=== PATIENT | male | born 1980 | race Hispanic/Latino ===

== ENCOUNTER 2016-12-09 17:23 | Inpatient (IN) | payer OTHER ==
[~2016-12-09] VITALS: Ht 172.7 cm; Wt 104.3 kg
--- NOTE | 2016-12-09 17:24 | NUR ---
PT IN PD CUSTODY, BROUGHT TO ED FOR MED REFILLS. PT STATES HE WAS SEEN AT [facility] TODAY FOR SI AND THAT HE WAS RELEASED. PER PD, PT HAD AN ACTIVE WARRANT AND WAS ARRESTED PRIOR TO BEING ABLE TO APPLIANCE REPAIR TECHNICIAN HIS PRESCRIPTIONS. PER CA, PT MAY NOT BE MED COMPLIANT WITH HIS ABILIFY 10MG AND TRAZADONE 200MG FOR HIS BIPOLAR/SCHIZOPHRENIA. PT DOES REPORT +SI TO THIS RN AND REPORTS HEARING VOICES (NOT [facility]) TO MARITZA IQBAL. PT STATES THAT AT [facility] HE HIT HIS HEAD AGAINST THE WALL AND TIED A SHEET AROUND HIS NECK. PT IS IN HANDCUFFS. PT EVALUATED IN HALLWAY C AND MOVED VIA WHEELCHAIR TO ROOM 14.
--- NOTE | 2016-12-09 17:30 | NUR ---
MARITZA IQBAL AT BEDSIDE
--- NOTE | 2016-12-09 17:34 | ED PSYCHIATRIC COMPLAINT ---
See Addendum History of Present Illness General Chief Complaint: Psychiatric Related Complaint Stated Complaint: BIBA FOR MED REFILL Source: patient, EMS, police Exam Limitations: no limitations Vital Signs & Intake/Output Vital Signs & Intake/Output Vital Signs Date Time Temp Pulse Resp B/P B/P Pulse O2 O2 Flow FiO2 Mean Ox Delivery Rate 12/10 1620 Room Air 12/10 0950 100 120/90 12/10 0620 97.3 98 19 129/85 98 Room Air 12/09 2140 98.0 67 16 120/70 94 Room Air ED Intake and Output 12/10 0000 12/09 1200 Intake Total Output Total Balance Patient 230 lb Weight Allergies Uncoded Allergies: Allergy Other FISH Med Allergies NKDA Triage Note: PT BIBA IN CUSTODY FOR MED REFILL OF TRAZADONE AND ABILIFY. PT WAS SEEN AT [facility] [place] BUT GOT ARRESTED BEFORE HE COULD GET PRESCRIPTIONS FILLED. PT DENIES SI/HI. Triage Nurses Notes Reviewed? yes Onset: Abrupt Duration: day(s): HPI: 36-year-old male comes into emergency room for further evaluation of suicidal ideation as well as hearing voices. He is currently incarcerated with the police. Supposedly he was discharged from [facility] earlier today. Patient reports that he has a history of schizophrenia. He denies any alcohol or drug use. Denies any other associated symptoms. Denies any pain currently. Patient has been off of his trazodone and Abilify. (MONTEZ JEWELL) Past History Medical History Any Pertinent Medical History? see below for history Psychiatric: schizophrenia Surgical History Surgical History: non-contributory Psychosocial History What is your primary language Finnish Family History Hx Contributory? No (MONTEZ JEWELL) Review of Systems Review of Systems Constitutional: Reports: no symptoms. EENTM: Reports: no symptoms. Respiratory: Reports: no symptoms. Cardiovascular: Reports: no symptoms. GI: Reports: no symptoms. Genitourinary: Reports: no symptoms. Musculoskeletal: Reports: no symptoms. Skin: Reports: no symptoms. Neurological/Psychological: Reports: see HPI. Hematologic/Endocrine: Reports: no symptoms. Immunologic/Allergic: Reports: no symptoms. All Other Systems: Reviewed and Negative (MONTEZ JEWELL) Physical Exam Physical Exam General Appearance: well developed/nourished, mild distress Head: atraumatic Eyes: Bilateral: normal appearance. Ears, Nose, Throat: normal ENT inspection, hearing grossly normal Neck: normal inspection Respiratory: no respiratory distress Gastrointestinal: soft Extremities: normal range of motion Neurological/Psychiatric: awake, agitated Appearance/Memory/Insight: disheveled Behavoir/Eye Contact/Speech: avoids eye contact Thoughts/Hallucinations: no apparent hallucination Skin: intact, normal color, warm/dry SAD PERSONS Done? unobtained due to conditi (MONTEZ JEWELL) Progress Differential Diagnosis: dementia, drug intoxication, drug overdose, drug withdrawal, electrolyte abnormality, encephalitis, hypoglycemia, hypothyroidism, IC hem/mass/tumor, meningitis, bipolar, schizophrenia, Plan of Care: Orders Procedure Date/time Status Regular Diet 12/10 B Active Continuous Observation Monitor 12/10 0700 Active Current Medications Sig/Marianela Start time Last Medication Dose Stop Time Status Admin Quetiapine Fumarate 300 MG QPM 12/11 2200 UNVr (Seroquel) Quetiapine Fumarate 300 MG QPM 12/10 2200 CAN (Seroquel) Divalproex Sodium 750 MG ONCE ONE 12/10 1000 CAN (Depakote ER) 12/10 1001 Divalproex Sodium 750 MG DAILY 12/10 1000 UNVr 12/10 (Depakote ER) 1041 Hand-Off Endorsed To: JADA MARTEL,DACIA Donis Endorsed Time: 57 Pending: other (crisis) (MONTEZ JEWELL) Comments: 12/10/2016 9:56:37 AM patient signed out to me by Dr. Cardoso at shift price changer. The patient has been evaluated by the caseworker intake and medications been ordered at their request. Plan reevaluation in the morning (given the patient's past history it is highly unlikely a bed would be available prior to this patient's Monday court appearance). 12/10/2016 7:38:35 PM patient signed out to Dr. Truong at shift price changer. (SOILA MARTEL,VALERY Morrow) Departure Departure Disposition: STILL A PATIENT Condition: Stable Clinical Impression Primary Impression: Suicidal ideation Secondary Impressions: Auditory hallucinations Referrals: UNKNOWN Departure Forms: Customer Survey General Discharge Information (MONTEZ JEWELL) PA/FOREST RANGER TECHNICIAN Co-Sign Statement Statement: ED Attending supervision documentation- [] I saw and evaluated the patient. I have also reviewed all the pertinent lab results and diagnostic results. I agree with the findings and the plan of care as documented in the PA's/FOREST RANGER TECHNICIAN's documentation. [x] I have reviewed the ED Record and agree with the PA's/FOREST RANGER TECHNICIAN's documentation. [] Additions or exceptions (if any) to the PAs/FOREST RANGER TECHNICIAN's note and plan are summarized below: [] (JADA MARTEL,DACIA Donis) PA/FOREST RANGER TECHNICIAN Co-Sign Statement Statement: ED Attending supervision documentation- [] I saw and evaluated the patient. I have also reviewed all the pertinent lab results and diagnostic results. I agree with the findings and the plan of care as documented in the PA's/FOREST RANGER TECHNICIAN's documentation. [] I have reviewed the ED Record and agree with the PA's/FOREST RANGER TECHNICIAN's documentation. [] Additions or exceptions (if any) to the PAs/FOREST RANGER TECHNICIAN's note and plan are summarized below: [] (VALERY TRUONG DO) ED Attending supervision documentation- [] I saw and evaluated the patient. I have also reviewed all the pertinent lab results and diagnostic results. I agree with the findings and the plan of care as documented in the PA's/FOREST RANGER TECHNICIAN's documentation. [x] I have reviewed the ED Record and agree with the PA's/FOREST RANGER TECHNICIAN's documentation. [] Additions or exceptions (if any) to the PAs/FOREST RANGER TECHNICIAN's note and plan are summarized below: [] (JADA MARTEL,DACIA Donis)
--- NOTE | 2016-12-09 17:35 | NUR ---
SECURITY AT BEDSIDE FOR WANDING
--- NOTE | 2016-12-09 18:00 | NUR ---
PT RECEIVED AND ATE DINNER TRAY
[2016-12-09 18:15] LABS: ABSOLUTE BASOPHIL COUNT 0 /CUMM (0.0-0.2); ABSOLUTE EOSINOPHIL COUNT 0.2 /CUMM (0.0-0.7); ABSOLUTE GRANULOCYTE CT 3.8 /CUMM (1.4-6.5); ABSOLUTE LYMPH COUNT 2.2 /CUMM (1.2-3.4); ABSOLUTE MONOCYTE COUNT 0.6 /CUMM (0.10-0.60); BASOPHIL % 0.3 % (0.0-2.0); GRANULOCYTE % 55.1 % (42.2-75.2); HEMATOCRIT 43.4 % (42-52); MEAN CORPUSCULAR HGB 26.5 PG (27.0-31.0); MEAN CORPUSCULAR HGB CONC 33.3 G/DL (33.0-37.0); MEAN CORPUSCULAR VOLUME 79.6 FL (80.0-94.0); MEAN PLATELET VOLUME 9.3 FL (7.4-10.4); PLATELET COUNT 166 /CUMM (130-400); RBC DISTRIBUTION WIDTH 17.8 % (11.5-14.5); RED BLOOD CELL CT 5.45 /CUMM (4.70-6.10); WHITE BLOOD CELL COUNT 6.8 /CUMM (4.8-10.8)
--- NOTE | 2016-12-09 18:15 | NUR ---
PT PROVIDED URINE SPECIMEN AND TRIO WAS SENT TO LAB
--- NOTE | 2016-12-09 19:14 | NUR ---
CRISIS ATTEMPTED TO EVAL PT BUT HE WAS ASLEEP. PD OFFICER AND SITTER AT DOOR.
--- NOTE | 2016-12-09 21:03 | NUR ---
Crisis has attempted to evaluate patient at 1700 and 1900. Patient does not seem arousable at both times. It is unclear whether patient is somulent due to cocaine withdrawal or if he is avoiding the evaluation because of the circumstances of police involvement (will be taken into police custody at discharge bc of an active warrant - officer will be present until final dispo)
--- NOTE | 2016-12-09 21:17 | ED PSY CRISIS COLLATERAL NOTE ---
Collateral Note Collateral Note Family/Inform/Alexey Contacts: Collateral obtained MondayDecember 09, 2016 1.) This documentation writer attempted to contact patient's emergency contact Eleazar Ford A voicemail was left requesting call back to crisis 2.) This documentation writer contacted [facility]'s behavioral health for collateral information Behavioral health nurse Tova reports patient was seen at their emergency department earlier today. Patient was evaluated by psychiatry and cleared for discharge. Patient per nurse report has been seen 3 times at [facility] emergency department in the past week. At time of discharge today, client escalated by banging his head - patient was escorted out of the hospital by police. Nurse is not aware of any recent suicide attempt while at the hospital as reported in [facility]'s admitting notes. Nurse reports patient has been seen several times at [facility] emergency department and has had an inpatient stay at [facility]. Nurse reports patient has criminal history of sexual assault and has a warrant for violation of probation / failure to register as an offender. Nurse indicates patient has a diagnosis for bipolar disorder but is noncompliant with his psychotropic medications. Nurse reports patient was not given a discharge prescription today from the hospital and she is not aware of any current medication management providers involved in his care.
--- NOTE | 2016-12-09 21:40 | NUR ---
PT AWOKEN FOR VITALS. PT CALM AND COOPERATIVE. VSS. SITTER AT DOOR.
--- NOTE | 2016-12-09 23:42 | NUR ---
ASSUMED CARE OF PT PER DAREN MCBRIDE. PT SLEEPING ON RIGHT SIDE WITH BILATERAL CHEST RISE AND FALL, SNORING NOTED. SUPERVISOR EDGING AND SITTER AT BEDSIDE FOR SAFETY.
--- NOTE | 2016-12-10 02:48 | NUR ---
PT SLEEPING WITH RR, WILL CONTINE TO MONITOR, PT HAS SITTER PD OFFICER IN PLACE FOR SAFETY.
--- NOTE | 2016-12-10 04:40 | NUR ---
SLEEPING, SITTER AND PD IN ATTENDANCE.
--- NOTE | 2016-12-10 06:25 | NUR ---
PT AWAKE, VSS. PD REMAINS AT BEDSIDE AND PT REMAINS IN HANDCUFFS ADJUSTED BY PD.
--- NOTE | 2016-12-10 08:00 | NUR ---
EATING BREAKFAST, SITTER AND PD IN ATTENDANCE.
--- NOTE | 2016-12-10 09:12 | NUR ---
PMO PROJECT MANAGER IN TO EVALUATE.
--- NOTE | 2016-12-10 10:16 | ED PSY CRISIS COLLATERAL NOTE ---
Collateral Note Collateral Note Family/Inform/Alexey Contacts: This clinician spoke with lEeazar Ford [phone] friend who reported the patient has a long history of mental health treatment. She reported the patient has a diagnoses of Bipolar Depressed mood and has a history of suicide ideation stating he wants to kill himself.
--- NOTE | 2016-12-10 10:57 | ED PSYCH CRISIS CONSULTATION ---
See Addendum Crisis Consult Basic Assessment Date of Consult: 12/10/16 Responsible Person/Accompanied By: Self Insurance Authorization: Insurance #1: Insurance name: ENRIQUETA LARSON Phone number: Policy number: [id number] Group number: Authorization number: ED Provider: Patient's ED Provider: MONTEZ JEWELL Primary Care Physician: Patient's PCP: PATIENT HAS NO PRIMARY CARE DR PCP's Phone Number: Current Psychiatrist: Dr. Manoj Wilde Chief Complaint: Psychiatric Related Complaint Patient's Quote: " voices telling me to kill myself" Present Illness: Patient is 36 year old single male who presents to the emergency room with auditory hallucination telling him to kill himself. He reports a history of suicide ideations and recently trying to hang himself with a sheet while attempting to receive treatment at [facility]. He represents depressed, sad, and angry. The patient reports a long history of mental health treatment [facility]. He is currently in police custody regarding current legal charge, the patient is a register sex offender and states he did not provide his current address and has a court date on Monday December 12, 2016. He reports a legal history of sales of narcotics. He reports a history of substance abuse Alcohol, Cannabis and Cocaine and last use of Cocaine two days ago several bags. He provided a positive toxicology screen for Cocaine. Patient's Address: [address] [place] [address] Other Phone Number: Who Do You Live With? Other (see notes) (Homeless) Family/Informants Interviewed: Eleazar Ford [phone] Allergies - Uncoded Allergies: Allergy Other FISH Med Allergies NKDA Laboratory Results: Laboratory Tests 12/09/16 1819: Urine Opiates Screen < 100.00, Methadone Screen < 40, Barbiturate Screen < 60, Ur Phencyclidine Scrn < 6.00, Amphetamines Screen < 100, U Benzodiazepines Scrn < 85, Urine Cocaine Screen > 1000 H, Urine Cannabis Screen 11.30 12/09/16 1802: Anion Gap 9, Estimated GFR > 60, BUN/Creatinine Ratio 22.9, Glucose 96, Calcium 9.4, Total Bilirubin 0.5, AST 38, ALT 45, Alkaline Phosphatase 47, Total Protein 6.3, Albumin 4.0, Globulin 2.3, Albumin/Globulin Ratio 1.7, CBC w Diff NO MAN DIFF REQ, RBC 5.45, MCV 79.6 L, MCH 26.5 L, RDW 17.8 H, MPV 9.3, Gran % 55.1, Lymphocytes % 32.7, Monocytes % 8.9, Eosinophils % 3.0, Basophils % 0.3, Absolute Granulocytes 3.8, Absolute Lymphocytes 2.2, Absolute Monocytes 0.6, Absolute Eosinophils 0.2, Absolute Basophils 0, PUBS MCHC 33.3, Serum Alcohol < 10.0 Past History Past Medical History Respiratory: asthma Psychiatric: bipolar disease, depression, schizophrenia, substance abuse Past Surgical History Surgical History: non-contributory Psychosocial History Strengths/Capabilities: motivated for treatment Psychiatric Treatment History Psych Treatment Psychiatric Treatment Yes Inpatient Treatment Yes Outpatient Treatment Yes Location of Treatment [place] [place] Reason for Treatment Bipolar Disorder Dates of Treatment 2009 Response to Treatment poor Diagnosis by History: Bipolar Disorder Substance Use/Abuse History Drug Use/Abuse Substances Used/Abused Yes Substance Used/Abused Cocaine First Use 17 year old Last Used 2 days ago How much used/taken 5 bags How often 3times weekly For how long 17 years old Route of use smoking Substance Abuse Treatment Substance Abuse Treatment Past Substance Abuse [place] No Inpatient Treatment No Outpatient Treatment No Current Mental Status Mental Status Orientation: Person, Place, Situation Affect: Angry, Depressed, Sad Speech: Soft Neuro-vegetative: Appetite Decreased Appearance Appearance- Dress/Hygiene: Dressed in hospital clothing Behaviors Thought Process: WNL Thought Content: Auditory Hallucinations Memory: WNL Insight: Poor SI/HI Risk Assessment Past Suicidal Ideation/Attempts Yes Current Suicidal Ideation/Att Yes Past Homicidal Ideation/Att: No Current Homicidal Ideation/Attempts No Degree of Intent: Thoughts/No Intent Danger To: Self Gravely Disabled: Lack of Insight, Poor Impulse Control, Poor Judgment Risk Factors: high anxiety/distress, history of suicide atmpts, SA/MH hospitalized, substance abuse, isolate/no social support, poor impulse control, limited support Lethality Ratin PTSD Checklist PTSD Score: PTSD Score: Response Value Disturbing memories,thoughts,images of stressful experience? Not at all 1 Disturbing dreams of stressful experience from past? Not at all 1 Suddenly acting/feeling as if reliving stressful experience? Not at all 1 Total 3 PTSD Done? patient declined ED Management Sitter: Yes Restraints: No DSM5/PS Stressors/Medical Prob Diagnosis' (DSM 5, Stressors, Medical): Bipolar Disoder Depressed with psychotic Features F31.5, Asthma Current GAF: 28 Comments: Pt presents to emergency room with auditory hallucination and suicidal ideation voices telling him to kill himself with no plan. Pt presents with history of Bipolar Disorder Depressed with Psychotic features. Pt is currently in the custody of the police with court date on Monday December 12, 2016. He reports not taking his medication Depakote and Seroquel. This clinician consulted with Dr. Manoj Wilde for the patient to be treated iwth Depakote and Seroquel and re-evaluated on 12/11/2016. Departure Disposition Psych Medical Clearance Date: 12/10/16 Medically Cleared at: 0900 Time Started: 0900 Time Ended: 1000 Psychiatrist Consulted: Dr. Manoj Wilde Date Disposition Established: 12/10/16 Time Disposition Established: 1000 Plan for Disposition - Modality: Re- Evaluation on 12/11/2016 Rationale for Disposition: Pt presents to emergency room with auditory hallucination and suicidal ideation voices telling him to kill himself with no plan. Pt presents with history of Bipolar Disorder Depressed with Psychotic features. Pt is currently in the custody of the police with court date on Monday December 12, 2016. He reports not taking his medication Depakote and Seroquel. This clinician consulted with Dr. Manoj Wilde for the patient to be treated iwth Depakote and Seroquel and re-evaluated on 12/11/2016. Referrals PATIENT HAS NO PRIMARY CARE DR (PCP/Family)
--- NOTE | 2016-12-10 11:34 | NUR ---
ASSUMED CARE OF THIS PT FROM DAREN PONCE. PT ASLEEP AT THIS TIME. PT HAS ONE FOOT CUFFED TO THE BED AND PD OFFICER AT DOOR. RESPIRATIONS EQUALA ND UNLABORED AT 16/MIN. SITTER AT DOOR ALSO.
--- NOTE | 2016-12-10 12:58 | NUR ---
PT ASLEEP AT THIS TIME. SITTER AND PD OFFICER AT DOOR.
--- NOTE | 2016-12-10 14:29 | NUR ---
PT ASLEEP ON BED IN ROOM 14. PT'S RESPIRATIONS EQUAL AND UNLABORED. PD OFFICER AND SITTER AT DOOR.
--- NOTE | 2016-12-10 16:20 | NUR ---
YAIR REPORTED THAT PT IS REQUESTING AN ADDITIONAL DINNER TRAY. THIS RN TOLD YAIR IT WAS OK FOR HER TO CALL AND REQUEST ANOTHER MEAL. YAIR AND PD OFFICER AT DOOR.
--- NOTE | 2016-12-10 17:15 | NUR ---
PT ATE SECOND DINNER TRAY AND IS LYING ON BED IN ROOM 14 WITH [place] PD OFFICER AND SITTER AT DOOR. PT HAS BEEN CALM AND COOPERATIVE. RESPIRATIONS EQUAL AND UNLABORED.
--- NOTE | 2016-12-10 18:43 | NUR ---
Crisis went to meet with pt for evening shift evaluation. Pt was sleeping facing wall. Asked sitter to inform crisis if he wakes up or goes to the bathroom
--- NOTE | 2016-12-10 20:24 | NUR ---
Crisis went to check on patient to see if he can be risen for re-evaluation. Patient is sound asleep at this time.
--- NOTE | 2016-12-10 21:00 | NUR ---
PT UNSHACKELED FROM THE BED TO USE THE RESTROOM TO HAVE A BOWEL MOVEMENT. PT CALM AND COOPERATIVE AND WENT STRAIGHT BACK TO ROOM 14 WHEN DONE IN RESTROOM. PT ASKING FOR HIS [facility] MED. SITTER AND [place] PD OFFICER AT DOOR.
--- NOTE | 2016-12-10 21:44 | NUR ---
PT MEDICATED WITH SEROQUEL 300MG PO. PT REPORTS BACK PAIN AND IS REQUESTING MOTRIN. WILL MAKE MD AWARE. SITTER AND PD OFFICER AT DOOR.
--- NOTE | 2016-12-10 22:11 | NUR ---
PT MEDICATED WITH MOTRIN 600MG FOR BACKACHE, PIS 12/05. SITTER AND PD OFFICER AT DOOR
--- NOTE | 2016-12-11 00:06 | NUR ---
PT REMAINS ASLEEP AT THIS TIME W/RR NOTED. SITTER AND FROG FARMER REMAINS AT BEDSIDE FOR SAFETY. WILL CTM.
--- NOTE | 2016-12-11 02:24 | NUR ---
PT REMAINS ASLEEP AT THIS TIME W/RR NOTED. NAD. EQUAL AND BILATERAL CHEST RISE AND FALL. SITTER AND HOURLY ASSOCIATE AT BEDSIDE
--- NOTE | 2016-12-11 04:15 | NUR ---
PT REMAINS ASLEEP AT THIS TIME, RR NOTED. NAD. BILATERAL AND EQUAL CHEST RISE AND FALL. PT REMAINS WITH FOOT SHACKLED TO BED FRAME. CIRCULATION AND ROM WNL. SITTER AND POLICE REMAIN AT BEDSIDE FOR SAFETY. WILL CTM.
--- NOTE | 2016-12-11 06:51 | NUR ---
PATIENT ASLEEP AT PRESENT. EVEN, NONLABORED RESP RATE NOTED. LIGHTS REMAIN DIMMED AT PRESENT. WILL CONTINUE TO MONITOR. SITTER REMAINS IN PLACE FOR CONSTANT OBSERVATION AND PATIENT SAFETY. POLICE REMAINS IN PLACE.
--- NOTE | 2016-12-11 08:40 | NUR ---
PATIETN RESTING COMFORTABLY - NO COMPLAINTS OFFERED. POLICE REMAIN IN PRESENCE. WILL CONTINUE TO MONITOR. SITTERS REMAIN IN PLACE FOR CONSTANT OBSERVATION AND PATIENT SAFETY. WILL CONTINUE TO MONITOR.
--- NOTE | 2016-12-11 09:02 | NUR ---
PATIENT SLEEPING SOUNDLY AT PRESENT. EVEN, NONLABORED RESP RATE NOTED. WILL CONTINUE TO MONITOR. SITTER REMAINS IN PLACE FOR CONSTANT OBSERVATION AND PATIENT SAFETY.
--- NOTE | 2016-12-11 09:49 | ED PSYCHIATRIST/APRN CONSULT ---
Psychiatrist/MANAGER [employer] CENTER ED Consult Assessment and Plan: Pt seen as f/u. Pt difficult to arouse and very irritable on arousal. Pt notes that "still thining about hurting" himself. Feels that in the past the VPA and seroquel were helpful though seroquel did cause him to be sedated so he took at night. Pt denies AVHs today. MSE Appears older than stated age, somewhat cooperative, staring eye contact, nl speech r/r/p/v, mood "not good," affect very irritable, hostile, congruent, inappr, non-labile, linear and goal directed thought process, denies AVHs, + passive SI, no active SI, I/J limited A/P: Pt with Bipolar disorder with acute worsening of depression and psychotic sx in the setting of legal charges and recent arrest. Pt is in police custody with court date tomorrow morning. Attempting to stablize him with restart of meds that were previously helpful give acute decomenstation hopeful for acute reconstitution with cessation of SI. - Continue depakote ER 750mg night - Continue seroquel 300mg qhs
--- NOTE | 2016-12-11 09:54 | NUR ---
pharmacy called for depakote dosage ordered for 1000am
--- NOTE | 2016-12-11 10:16 | NUR ---
500mg depakote admin.
--- NOTE | 2016-12-11 11:20 | NUR ---
ASSUMED CARE OF THIS PT FROM DAREN MEDLEY. PT REMAINS IN PD CUSTODY AND IS SHACKELED TO BED. PT REPORTED TO SITTER THAT HE WAS NOT HAPPY WITH HIS LUNCH AND REQUESTED ANOTHER TRAY. PT WAS EDUCATED THAT ONE LUNCH TRAY IS ORDERED AND THAT IS WHAT IS AVAILABLE TO HIM. [place] PD OFFICER AT DOOR.
--- NOTE | 2016-12-11 12:28 | NUR ---
PT MEDICATED WITH ATIVAN 2MG PO FOR AGITATION. PT STATES THAT HE IS STILL HEARING VOICES TELLING HIM TO KILL HIMSELF. PT STATES THAT HE WISHED HE WAS , SO THAT HE COULD BE WITH HIS BROTHER WHO OVERDOSED AND . SITTER AND PD OFFICER AT DOOR.
--- NOTE | 2016-12-11 13:45 | NUR ---
PT ASLEEP ON BED IN ROOM AEB SNORING. SITTER AT DOOR.
--- NOTE | 2016-12-11 14:04 | NUR ---
PT'S RESPIRATIONS EQUAL AND UNLABORED AT 16/MIN.
--- NOTE | 2016-12-11 15:49 | NUR ---
PT ASLEEP IN ROOM 14. RESPIRATIONS EQUAL AND UNLABORED. SITTER AND PD OFFICER AT DOOR.
--- NOTE | 2016-12-11 15:51 | NUR ---
Pt. continues to reports having AH's to harm himself. Pt. will be h/o again in the ED. Pt. is in policer custoday and has court tomorrow.
--- NOTE | 2016-12-11 17:11 | NUR ---
PT ASLEEP AT THIS TIME, RESPIRATIONS EQUAL AND UNLABORED. SITTER AND PD OFFICER AT DOOR.
--- NOTE | 2016-12-11 18:45 | NUR ---
PT STARTING TO GET AGITATED AND HITTING HEAD AGAINST WALL. PT COMPLAINING ABOUT NOT BEING TREATED WELL AND ONLY GETTING GRILLED CHEESE FOR DINNER. PD OFFICER SPOKE WITH PT. PT ASKING TO SEE PSYCHIATRIST. THIS RN MADE DR CM AWARE THAT PT IS ASKING TO SEE MD AND IS ALSO SAYING HE FEELS LIKE HE WANTS TO HARM HIMSELF. CRISIS MADE AWARE AND THEY WILL CALL DR Montesinos FOR MED RECOMMENDATIONS. YAIR AND PD OFFICER AT DOOR.
--- NOTE | 2016-12-11 19:51 | NUR ---
PT MEDICATED WITH ATIVAN 2MG, HALDOL 10MG AND BENADRYL 50MG FOR AGITATION. SECURITY AND [place] PD OFFICERS IN ROOM WITH THIS RN FOR SAFETY.
--- NOTE | 2016-12-11 21:08 | NUR ---
PT ASLEEP AT THIS TIME AEB SNORING. PT'S RESPIRATIONS 16/MINUTE, EQUALA ND UNLABORED. SITTER AND PD AT DOOR.
--- NOTE | 2016-12-11 22:30 | NUR ---
THIS RN ATTEMPTED TO AWAKEN PT FOR QHS SEROQUEL BUT PT WAS VERY DROWSY AND DID NOT FULLLY AWAKEN. HOLDING SEROQUEL DOSE AT THIS TIME DUE TO SEDATION.
--- NOTE | 2016-12-11 23:34 | NUR ---
ASSUMED CARE OF PT FROM DAREN MCBRIDE. PT SLEEPING WITH REGULAR RR NOTED. SITTER AND PD REMAINS PRESENT
--- NOTE | 2016-12-12 02:00 | NUR ---
CURRENTLY SLEEPING WITH REGULAR RR NOTED. PD AND SITTER REMAIN IN ATTENDANCE.
--- NOTE | 2016-12-12 04:12 | NUR ---
SLEEPING AT PRESENT WITH REGULAR RR NOTED PD AND SITTER AT BEDSIDE
--- NOTE | 2016-12-12 08:00 | NUR ---
RESTING ON BED. SITTER IN ATTENDANCE. PT REMAINS HANDCUFFED TO BED. PD IN ATTENDANCE. AWAITING POC/DISPO. Informed waiting has been performed.
--- NOTE | 2016-12-12 10:39 | NUR ---
MEDICATED ORDERED (SEE MAR)
--- NOTE | 2016-12-12 12:11 | IP CRISIS DIAG ASSESS PSYCH ---
Diagnostic Assessment Basic Assessment Insurance Authorization: Insurance #1: Insurance name: ENRIQUETA LARSON Phone number: Policy number: [id number] Group number: Authorization number: [id number] from 12/12/16 Primary Care Physician: Patient's PCP: PATIENT HAS NO PRIMARY CARE DR PCP's Phone Number: Patient's Quote: " voices telling me to kill myself" Present Illness: 12/12/16 @ 0815: 36 M held over for psychotic symptoms. He remains in [place] police custody, and is due for a court hearing this morning. If he makes his $15 ,000 [place], he may be released to home. The patient denies he has a naval gunfire liaison officer, and he was arrested because he did not notify the State of his residence. The patient is sleeping, arousable, moderately cooperative. Oriented to person, day, reason for visit, and knows he is in a hospital. There is a significant delay in his responses, as if he is referring to an internal source. He reports that the quetiapine has slowed the multiple male voices he hears, but they are currently telling him to hurt himself by hanging. He reports that no medication has helped him very much, and he listens to loud music to drown the voices out. He currently endorses suicidal intent by hanging himself and beleives he will do this if released. He has a history of suicide attempts: hanging at home interrupted by being found ; cutting wrists, does not answer question about outcome. He does not feel he is detoxing from anything, but was positive for cocaine upon admission on 12/09/16 @ 1724. He feels safe from himself here in the hospital. The patient reports he normally lives with his aunt Kayleen. The patient is currently having psychotic symptoms and has a plan and intent to kill himself. After discussion with Dr. Kelley, and discussion between [facility], Macie Pablo, director of outpatient psychiatry and Garrett Vasquez, hospital certified credit counselor, the patient will go to inpatient psychiatry today without police escort. SW on [facility] will notify [facility] before [facility] patient is discharged. Patient's Address: [address] [place] [address] Other Phone Number: Who Do You Live With? Other (see notes) (Homeless,) Feel Safe Where You Live? Yes If No, Please Elaborate: The patient reports on 12/12/16 that he lives with his aunt Kayleen, with no one else in the household. He denies he has any children needing care while he is in the hospital. Marital Status: single Do You Have Children? No Primary Language? Armenian Language(s) Spoken At Home: Armenian, Sinhala Family/Informants Interviewed: Eleazar Ford [phone] Allergies - Coded Allergies: No Known Allergies (12/11/16) Consequences of Psych Med Use: The patient dislikes Abilify, saying he does not like the way it makes him feel, but will not elaborate. Lab Results: Laboratory Tests 12/09 12/09 1819 1802 Chemistry Sodium (137 - 145 mmol/L) 140 Potassium (3.5 - 5.1 mmol/L) 4.0 Chloride (98 - 107 mmol/L) 105 Carbon Dioxide (22 - 30 mmol/L) 26 Anion Gap (5 - 16) 9 BUN (9 - 20 mg/dL) 16 Creatinine (0.7 - 1.2 mg/dL) 0.7 Estimated GFR (>60 ml/min) > 60 BUN/Creatinine Ratio (7 - 25 %) 22.9 Glucose (65 - 99 mg/dL) 96 Calcium (8.4 - 10.2 mg/dL) 9.4 Total Bilirubin (0.2 - 1.3 mg/dL) 0.5 AST (17 - 59 U/L) 38 ALT (21 - 72 U/L) 45 Alkaline Phosphatase (< 127 U/L) 47 Total Protein (6.3 - 8.2 g/dL) 6.3 Albumin (3.5 - 5.0 g/dL) 4.0 Globulin (1.9 - 4.2 gm/dL) 2.3 Albumin/Globulin Ratio (1.1 - 2.2 %) 1.7 Hematology CBC w Diff NO MAN DIFF REQ WBC (4.8 - 10.8 /CUMM) 6.8 RBC (4.70 - 6.10 /CUMM) 5.45 Hgb (14.0 - 18.0 G/DL) 14.4 Hct (42 - 52 %) 43.4 MCV (80.0 - 94.0 FL) 79.6 L MCH (27.0 - 31.0 PG) 26.5 L RDW (11.5 - 14.5 %) 17.8 H Plt Count (130 - 400 /CUMM) 166 MPV (7.4 - 10.4 FL) 9.3 Gran % (42.2 - 75.2 %) 55.1 Lymphocytes % (20.5 - 51.1 %) 32.7 Monocytes % (1.7 - 9.3 %) 8.9 Eosinophils % (0 - 5 %) 3.0 Basophils % (0.0 - 2.0 %) 0.3 Absolute Granulocytes (1.4 - 6.5 /CUMM) 3.8 Absolute Lymphocytes (1.2 - 3.4 /CUMM) 2.2 Absolute Monocytes (0.10 - 0.60 /CUMM) 0.6 Absolute Eosinophils (0.0 - 0.7 /CUMM) 0.2 Absolute Basophils (0.0 - 0.2 /CUMM) 0 PUBS MCHC (33.0 - 37.0 G/DL) 33.3 Toxicology Urine Opiates Screen (>2000 NG/ML) < 100.00 Methadone Screen (>300 NG/ML) < 40 Barbiturate Screen (>200 NG/ML) < 60 Ur Phencyclidine Scrn (>25 NG/ML) < 6.00 Amphetamines Screen (>1000 NG/ML) < 100 U Benzodiazepines Scrn (>200 NG/ML) < 85 Urine Cocaine Screen (>300 NG/ML) > 1000 H Urine Cannabis Screen (>50 NG/ML) 11.30 Serum Alcohol (<10 MG/DL) < 10.0 Toxicology Screen Completed? Yes Results: positive Symptoms of Use: Cocaine Past History Past Medical History Medical History: None/Denies Past Surgical History Surgical History none Abuse/Trauma History Trauma History/Current Trauma: Reports his best friend, Artie, , and the plice aren't doing what they need to do to catch the person., The patient states that he doesn't want to talk about his past. Legal History Current Legal Status: Under arrest. Notify [facility] when patient is ready for discharge. Have you ever been arrested? Yes Pending Court Dates: 12/12/16 Diamond Sizer Denies he has a PO Psychosocial History Strengths/Capabilities: "What does it matter?" Physical Limitations (Interventions): None Psychiatric Treatment History Psych Treatment Psychiatric Treatment Yes Inpatient Treatment Yes Outpatient Treatment Yes Location of Treatment [place], [place] Reason for Treatment Bipolar Disorder Dates of Treatment 2009 Response to Treatment poor Diagnosis by History: Bipolar Disorder Risk Factors: high anxiety/distress, history of suicide atmpts, SA/MH hospitalized, substance abuse, isolate/no social support, poor impulse control, limited support Substance Use/Abuse History Drug Use/Abuse minimum 12mo Hx Substances Used/Abused Yes Substance Used/Abused Cocaine First Use 17 year old Last Used 2 days ago How much used/taken 5 bags How often 3times weekly For how long 17 years old Route of use smoking Substance Abuse Treatment Substance Abuse Treatment Past Substance Abuse [place] No Inpatient Treatment No Outpatient Treatment No Response to Treatment Has been exposed to AA or NA, no sponsor. States that he had 3 months clean. Education History Highest Level of Education: high school/GED Preferred Learning Style: visual Current Mental Status Mental Status Orientation: Person, Place, Situation Affect: Angry, Depressed, Flat, Sad Speech: Delayed, Evasive, Soft Neuro-vegetative: Appetite Decreased, Sleep Disturbance Appearance Appearance- Dress/Hygiene: Dressed in hospital clothing. The patient's belongings are at [employer]; Officer Anthony requested to have clothing brought to the inpatient unit. Behaviors Thought Process: Disorganized Thought Content: Auditory Hallucinations Memory: Impaired Insight: Poor SI/HI Risk Assessment - Minimum 6mo History- Past Suicidal Ideation/Attempts Yes Current Suicidal Ideation/Att Yes Past Homicidal Ideation/Att: No Current Homicidal Ideation/Attempts No Degree of Intent: Thoughts/No Intent Danger To: Self Gravely Disabled: Lack of Insight, Poor Impulse Control, Poor Judgment Risk Factors: high anxiety/distress, history of suicide atmpts, SA/MH hospitalized, substance abuse, isolate/no social support, poor impulse control, limited support Lethality Ratin Needs/Init TX Plan/Goals: Return to police custody. AUDIT-C Questionnaire: AUDIT-C Questionnaire: Response Value ETOH use in the past year Never 0 # drinks typical/day Doesn't Drink 0 6 or > drinks per occasion Never 0 Total 0 DSM5/PS Stressors/Medical Prob Diagnosis' (DSM 5, Stressors, Medical): F31.5 Bipolar Disoder, Depressed with psychotic Features F14.20 Cocaine use d/o, severe Asthma Current GAF: 21 Comments: Pt presents to emergency room with auditory hallucination and suicidal ideation voices telling him to kill himself with plan to hang himself. Pt presents with history of Bipolar Disorder Depressed with Psychotic features. Pt is currently in the custody of the police with court date on Monday December 12, 2016. He reports not taking his medication Depakote and Seroquel. This clinician consulted with Dr. Manoj Wilde for the patient to be treated iwth Depakote and Seroquel and re-evaluated on 12/11/2016. The patient is agreeing to participate in evaluation, but is referring to an internal source. He refuses to particiapate in psychosocial questions related to his past.
--- NOTE | 2016-12-12 13:10 | SOCIAL WORKER SOCIAL HX PSYCH ---
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 Primary Care Physician: Patient's PCP: PATIENT HAS NO PRIMARY CARE DR PCP's Phone Number: Present Problem: The patient BIB [facility] to the ED on 12/09/16 @ 1724, had been treated and released from [facility] earlier that day for SI. PD arrested him on a warrant, charges unknown by the officer today, when he returned to fill prescriptions. Per Officer Anthony on 12/12/16, he was in the [place] PD lockup and began to act erratically, and was brought to the ED. In the ED, he stated that he wished to to be with his brother, who overdosed and . 12/12/16 @ 0815: The patient has one leg shackled to the bed. He is a 36 M held over for psychotic symptoms. He remains in [place] police custody, and is due for a court hearing this morning. If he makes his $15,000 [place], he may be released to home. The patient denies he has a supply requirements officer, and he was arrested because he did not notify the State of his residence. The patient is sleeping, arousable, moderately cooperative. Oriented to person, day, reason for visit, and knows he is in a hospital. There is a significant delay in his responses, as if he is referring to an internal source. He reports that the quetiapine has slowed the multiple male voices he hears, but they are currently telling him to hurt himself by hanging. He reports that no medication has helped him very much, and he listens to loud music to drown the voices out. He currently endorses suicidal intent by hanging himself and beleives he will do this if released. He has a history of suicide attempts: hanging at home interrupted by being found ; cutting wrists, does not answer question about outcome. He does not feel he is detoxing from anything, but was positive for cocaine upon admission on 12/09/16 @ 1724. He feels safe from himself here in the hospital. The patient reports he normally lives with his aunt Kayleen. The patient is currently having psychotic symptoms and has a plan and intent to kill himself. After discussion with Dr. Kelley, and discussion between [facility], Macie Pablo, director of outpatient psychiatry and Garrett Vasquez, hospital enrollment counselor, the patient will go to inpatient psychiatry today without police escort. [facility] will notify [facility] is discharged. Primary Language? Slovak Language(s) Spoken At Home: Slovak, Sinhala Living Situation Rents or Owns Home? rents Feel Safe Where You Are Living Yes Comments: Patient is generally uncooperative with social questions, saying that he is not comfortable talking about his past. Allergies - Coded Allergies: No Known Allergies (12/11/16) Consequences of Psych Med Use: He does not like Abilify and stopped it unilaterally. Past History Past Medical History Respiratory: asthma Psychiatric: bipolar disease, depression, schizophrenia, substance abuse Past Surgical History Surgical History: non-contributory /Family History Place/Country of Origin: [place] Childhood Family Constellation: Foster homes Primary Childhood Caretakers: He does not remember Family Life During Childhood: Does not remember Relationship w/Father: Foster child Any Sibling(s)? Yes Sibling's Gender(s)/Age(s): male Sibling 1: Relationship w/Sibling(s): At least one brother who of an OD, per triage note 12/09/16. Relationship w/Friends: No friends, but states that his friend Artie , which he feels was a traumatic experience. Family Psych/Sub Abuse/Add Hx: drug of choice (Unknown) Abuse/Trauma History Trauma History/Current Trauma: Reports his best friend, Artie, , and the plice aren't doing what they need to do to catch the person. The patient states that he doesn't want to talk about his past. Legal History Legal Guardian/Address/Phone: NA Current Legal Status: Under arrest by [facility] on a warrant. Pending Court Dates: 12/12/16, to be rescheduled. Have you ever been arrested Yes Hx of Juvenile Legal Charges? No Hx of Adult Legal Charges? Yes If Yes: He does not remember List/Date Most Recent Lgl Chgs: Arrested on a warrant 12/09/16, charge related to not notifying the court of his address, per the patient. Technical Support Agent Denies he has a PO Psychosocial History Primary Support System: aunt Strengths/Capabilities: "What does it matter?" Weaknesses: Drug use. Physical Limitations (Interventions): None Last Physical: Does not remember History of Seizures? No History of Blackouts? No ADL Limitations: None Slick/Social/Peer Relations No friends Meaningful Activities: No answer Childhood Taoist: Presybeterian Current Uatsdin Affiliation: Presybeterian Is Spirituality Important to You? Yes Patient's Ethnicity: Cultural/Ethnic Issues: None Milestones Achieved: Unknown Psychiatric Treatment History Psych Treatment Inpatient Treatment Yes Outpatient Treatment Yes Location of Treatment [place], [place] Reason for Treatment Bipolar Disorder Dates of Treatment 2009 Response to Treatment poor Precipitating Factors: Suicidality Current Aviation Safety Equipment Technician: Unknown. No prescriptions filled since July 2016 Treatment of Prior Episodes: Medication Diagnosis: Bipolar Disorder Psychodynamic Issues: Currently under arrest Risk Factors: high anxiety/distress, history of suicide atmpts, SA/MH hospitalized, substance abuse, isolate/no social support, poor impulse control, male, limited support Substance Use/Abuse History Drug Use/Abuse Substance Used/Abused Cocaine First Use 17 year old Last Used 2 days ago How much used/taken 5 bags How often 3times weekly For how long 17 years old Route of use smoking Have Had Periods of Sobriety? Yes Explain: 3 months Relapse History? Yes Have You Ever Attended AA? Yes Do You Attend AA Currently? No Do You Have a Sponsor? No Other Community Resources Used: Unknown Symptoms of Use: Cocaine Substance Abuse Treatment Substance Abuse Treatment Inpatient Treatment No Outpatient Treatment No Response to Treatment Has been exposed to AA or NA, no sponsor. States that he had 3 months clean. Education History Highest Level of Education: high school/GED Preferred Learning Style: visual HX of Learning Difficulties: None reported Barriers to Learning: None reported Employment History Employment Employed Vocation/Occupational Hx: Works construction; one job in 5 years. No. of Jobs in Last 5 Years: 1 Attendance: Normal Performance: Good Current Mental Status Problem List: 1. Suicidal ideation 2. Auditory hallucinations Mental Status Orientation: Person, Place, Situation Affect: Angry, Depressed, Flat, Sad Speech: Delayed, Evasive, Soft Neuro-vegetative: Appetite Decreased, Sleep Disturbance Appearance Appearance- Dress/Hygiene: Dressed in hospital clothing. The patient's belongings are at [place] [employer]; Officer Anthony requested to have clothing brought to the inpatient unit. Behaviors Thought Process: Disorganized Thought Content: Auditory Hallucinations Memory: Impaired Insight: Poor SI/HI Risk Assessment Past Suicidal Ideation/Attempts Yes Current Suicidal Ideation/Att Yes Past Homicidal Ideation/Att: No Current Homicidal Ideation/Attempts No Degree of Intent: Thoughts/No Intent Danger To: Self Gravely Disabled: Lack of Insight, Poor Impulse Control, Poor Judgment Lethality Ratin - Conclusion and Recommendations for treatment - and discharge planning Summary: The patient BIB [facility] to the ED on 12/09/16 @ 5974, had been treated and released from [facility] earlier that day for SI. PD arrested him on a warrant, charges unknown by the officer today, when he returned to fill prescriptions. Per Officer Anthony on 12/12/16, he was in the [facility] lockup and began to act erratically, and was brought to the ED. In the ED, he stated that he wished to to be with his brother, who overdosed and . 12/12/16 @ 0815: The patient has one leg shackled to the bed. He is a 36 M held over for psychotic symptoms. He is hearing command hallucinations, telling him to kill himself by hanging.
--- NOTE | 2016-12-12 15:45 | NUR ---
REPORT RECEIVED ON PT AND RN CARE ASSUMED. PT RESTING QUIETLY IN ROOM. ADMISSION AND TRANSFER TO [facility] ANTICIPATED. CLINICAL STATUS UNCHANGED.
--- NOTE | 2016-12-12 19:38 | NUR ---
PT ADMITTED TO [facility], ORAL REPORT GIVEN TO LLIY MERCEDES PT READY FOR TRANSFER
[2016-12-12 20:35] VITALS: BP 156/66
--- NOTE | 2016-12-12 22:34 | NUR ---
PT ADMITTED TO [facility] FOR EXACERBATION IN PSYCH. SYMPTOMS INCLUDING DEPRESSION WITH SI AND COMMAND TYPE HALLUCINATIONS TO HANG HIMSELF. PER ER REPORT FROM NURSE JOSE, PT APPARENTLY ARRESTED FOR NOT REGISTERING A SEX OFFENDER. WHEN IN CUSTODY, PT ENDORSED ACTIVE SI AND EXHIBITED SEXUALLY INAPPROPRIATE BEHAVIOR (MASTERBATING IN FRONT OF FEMALE DETAINEES.) PT ALSO ENDORSED ACTIVE SI TO SOCIAL WORK AND ER STAFF. UPON ARRIVAL TO UNIT, PT SCRUB PANTS SPLIT AT THE CROTCH AND PT NOT WEARING UNDERWEAR. PT DIRECTED TO PUT ON NEW SCRUBS AND HOSPITAL DISPOSABLE UNDERWEAR. PT DID CHANGE SCRUBS BUT APPARENTLY INITIALLY DID NOT PUT ON UNDERWEAR UNTIL DIRECTED AGAIN TO DO SO. DURING ADMISSION INTERVIEW ON [facility], PT REPORTED DEPRESSION "5" ON SCALE OF 1-10 WITH 10 BEING WORST. HE DENIED SI/THOUGHTS OF SELF HARM AND COMMAND TYPE HALLUCINATIONS. HE AGREED TO TELL STAFF IF THOUGHTS/SYMPTOMS RETURN. PT BEHAVIOR IRRITABLE UPON ARRIVAL. HOWEVER, WITH PROGRESSION OF TIME SPENT ON UNIT, BEHAVIOR OVERALL PLEASANT AND COOPERATIVE. ANXIETY NOTED, BUT PT UNABLE TO ASSIGN NUMBER 1-10. THOUGHT PROCESS CONCRETE. ANSWERED QUESTIONS WITH MOSTLY SINGLE WORDS AND SHORT PHRASES. REPORTED HE IS PRESCRIBED PSYCHIATRIC MEDICATION BUT HAS BEEN NONCOMPLIANT. PT ALSO REPORTED HIS BROTHER APPROX. A WEEK AGO WHICH CAUSED HIM TO FEEL SUICIDAL. PT ON 1:1 FOR REPORTED ACTIVE SI, RECENT AGITATION, AND SEXUALLY INAPPROPRIATE BEHAVIOR.
--- NOTE | 2016-12-13 04:32 | NUR ---
PT. SLEPT SOUNDLY SITTER AT BEDSIDE.
--- NOTE | 2016-12-13 10:18 | CPS MD/APRN INITIAL ASSE PSYCH ---
Psychiatric Admission Stock Clipper's Note Reviewed: Yes Patient Seen and Examined: Yes Identifying Information: Patient is a 36-year-old single, unemployed male with a history of Bipolar disorder, a longstanding legal hx, and registered sex offender. Presented to [facility] Emergency Department on 12/09/16 in [place] police custody for suicidal ideation and command auditory hallucinations to kill himself, intoxicated on cocaine. Chief Complaint: "I had suicidal thoughts. I don't now." Reaction to Hospitalization: unable to assess History of Present Illness Onset of Illness: Several years ago Circumstances Leading to Admission: Worsening depression, suicidal ideation and auditory hallucinations in the context of legal charges and recent arrest. Problem(s) Justifying Need for Admission: Command auditory hallucinations to kill himself, +SI Other HPI: Patient provides a minimal history leading up to ED admission. States he has been hearing voices telling him to harm himself but does not indicate how long symptoms have been present. States he had been in outpatient treatment at [facility], then stopped his medications (seroquel + depakote) and going to tx. Patient did not say when he stopped tx or medications. He showed a low frustration tolerance and stated he didn't want to talk anymore. Denies present SI/HI/AH/VH. Past Psychiatric History Past Diagnosis(es)- if any: Bipolar disorder Past Precipitating Factors- if any: --multiple prior legal charges (sexual assault 3rd degree, drug charges) --polysubstance use --treatment nonadherence - Include inpatient and outpatient treatment Treatment History: --prior inpatient psych hospitalizations at [facility] and [facility]. Did not disclose other inpatient tx. --prior Care, did not state when he was last treated there. --not currently in tx. History of Suicide Attempts or Gestures Reports prior suicide attempts, would not disclose # or methods of attempts, or date of last attempt. Substance Abuse History: Utox (+) cocaine only Hx etoh, cocaine, mj use per crisis eval. Patient would not disclose a past/recent hx of substance use. Allergies: Coded Allergies: No Known Allergies (12/11/16) Home Med List: None reported - Include any medical condition(s) that may - impact the patient's recovery/remission Past History Medical History Neurological: NONE EENT: NONE Cardiovascular: NONE Respiratory: asthma Gastrointestinal: NONE Hepatic: NONE Renal: NONE Musculoskeletal: NONE Psychiatric: bipolar disease, depression, schizophrenia, substance abuse Endocrine: NONE Blood Disorders: NONE Cancer(s): NONE DIRECT MARKETING SPECIALIST/Reproductive: NONE History of MRSA: No History of VRE: No History of CDIFF: No Isolation History: Standard Surgical History Surgical History: none Psychiatric Family/Social Hx Family History Psychiatric Illness: unknown, pt would not answer Substance Use: unknown, pt would not answer Suicides: unknown, pt would not answer Social History Living Situation: Lives with his aunt Significant Relationships (family/friends): aunt Education: HS/GED Vocation/Occupation: unemployed Legal: Multiple prior arrests per [place] Judicial website including 3rd degree sexual assault and drug charges. Healthly Behaviors Screening Tobacco Screening Tobacco Use from ED Docu: Current Not Daily - If tobacco counseling indicated - the following topics are required. - #1 Recognizing dangerous situations. - #2 Coping Skills. - #3 Basic information about quitting. Status of Tobacco Cessation Counseling: Counseling Refused Cessation Med Status Nicotine Gum Ordered Alcohol Screening - ETOH screen POS if BAL >=80 or Audit-C>= M4/F3 Audit-C Score from Diag Assess: 0 Blood Alcohol Level: Lab Serum Alcohol < 10.0 MG/DL 12/09/16 1802 Alcohol Use Screening Results: Neg per Audit C &/or BAL - If ETOH counseling indicated - the following topics are required. - #1 Express concern about the patient's - drinking at unhealthy levels, include informing - of national norms for moderate drinking: - men <= 14 drinks/week, max 4 drinks/occasion - women <= 7 drinks/week, max 3 drinks/occasion - #2 Providing feedback, including linking alcohol to - negative physical effects (liver injury, hypertension) - negative emotional effects (relationship problems and - depression) - negative occupational consequences (reduced work - performance) - #3 Advising the patient to abstain from alcohol or - to drink below national norms for moderate drinking - (as listed above). Status of ETOH Use Counseling: N/A B/C NO ETOH Use Metabolic Screening - Screen if on a Neuroleptic Medication - Metabolic screening should include: - Blood Pressure, BMI, Glucose or Hgb A1c, & a - Lipid profile from within the past 365 days. Metabolic Screening () Not Applicable, patient not on a neuroleptic. OR ([X]) Patient on a neuroleptic(s) . Enter below results for Glucose or Hemoglobin A1C, and lipid panel if obtained during the last 365 days. BMI: 34.900 Blood Pressure: 114/79 Laboratory Results (If applicable): Lab Cholesterol 120 MG/DL 12/09/16 1802 Cholesterol/HDL Ratio 3 % 12/09/16 1802 Glucose 96 mg/dL 12/09/16 1802 HDL Cholesterol 38 mg/dL L 12/09/16 1802 LDL Cholesterol, Calc 58 mg/dL L 12/09/16 1802 Triglycerides 122 mg/dL 12/09/16 1802 Exam and Plan Mental Status Examination Ambulation Status: ambulates freely Appearance: 36y/o male who appears somewhat older than stated age. Attitude towards examiner: uncooperative, irritable Psychomotor activity: + agitation Behavior: in fair behavioral control Quality of speech: loud at times, normal in rate and tone. Affect: constricted, irritable Mood: "not good." Suicidal Ideation: denies SI Homicidal Ideation: denies HI Hallucinations: denies AVH Paranoid/Delusional Material: none evident Difficulties with thought organization: none evident Insight: limited Judgment: limited Orientation: x 3 Cognition: grossly intact Memory Function: grossly intact Estimate of intellectual functioning: average or below Assets/Strengths Patient Identified Assets/Strengths: resourceful, supportive aunt Impression/Plan Impression and Plan: 36-year-old male with a history of Bipolar disorder, cocaine use disorder, prior inpatient hospitalizations and suicide attempts, who presented to ED with worsening depressive and psychotic symptoms in the setting of medication nonadherence and recent arrest for not updating his current address on the sex offender registery. Unclear if psychiatric symptoms were exacerbated by recent cocaine use or if there is a secondary gain associated to him being here (i.e. evading legal consequences). Currently, irritable and mostly uncooperative with interview process. Currently not suicidal or homicidal. Denies endorsing AV hallucinations. Patient likely will benefit from brief inpatient stay for stabilization of symptoms in a structured setting. - Include all active medical diagnosis that require tx DSM 5 Diagnosis(es): Bipolar disorder, MRE depressed with psychotic features Cocaine use disorder R/O Personality traits - Initial Tx Plan for Active Psych & Medical Conditions Treatment Plan: --monitor for safety, mood, suicidal ideation, psychosis. --d/c 1:1 as patient has remained in behavioral and physical control and contracts for safety on unit. He denies current SI, HI, AVH. --cont. Depakote ER 750mg QHS for mood stabilization. VPA level scheduled in AM. --cont. Seroquel 300mg QHS for clear thoughts/mood stabilization. --start Seroquel 50mg Q4H PRN for agitation/racing thoughts/hallucinations. --start Ativan 2mg po Q4H PRN for severe agitation. --monitor pt's response to psychotropics. --obtain collateral from family. --admission H&P per development mgr team. --[place] [employer] to be notified prior to patient being discharged from inpatient psychiatry. - Factors that would help patient function - in a less restrictive setting. Factors: sobriety medication/tx adherence cessation of SI/AH
--- NOTE | 2016-12-13 12:06 | NUR ---
PT HAS BEEN ISOLATIVE AND WITHDRAWN FOR MOST OF THE DAY, ONLY LEAVING HIS ROOM FOR THE RESTROOM AND BREAKFAST, MINIMAL INTERACTION WITH STAFF AND DID NOT FULLY COOPERATE WHEN QUINN GARCIA APRN WAS ATTEMPTING TO ASSESS THEREFORE 1:1 CONTINUES FOR SAFETY. NO ISSUES OR COMPLAINTS REPORTED OR OBSERVED, RESTING IN ROOM AT THIS TIME.
[2016-12-13 13:13] VITALS: BP 114/79
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
[2016-12-13 15:52] VITALS: BP 106/52
--- NOTE | 2016-12-13 21:57 | NUR ---
PT IS ISOLATIVE AND WITHDRAWN, REMAINING IN BED SLEEPING FOR MAJORITY OF EVENING. REFUSED VITALS THIS EVENING. MINIMAL INTERACTION WITH PEERS. NO COMPLAINTS OR SI REPORTED. PT HAS A STABLE MOOD AND FLAT AFFECT.
--- NOTE | 2016-12-13 22:25 | NUR ---
PT HAS BEEN SEEN EATING OTHER PATIENT'S FOOD, DESPITE THEIR NAMES BEING LABELED ON IT. RN TALKED WITH PT TO INFORM HIM NOT TO EAT OTHER PT'S FOOD AND PT REPLIED "OK".
[2016-12-14 08:50] VITALS: BP 123/78
--- NOTE | 2016-12-14 13:00 | NUR ---
PT HAS AN IRRITABLE EDGE BUT OVERALL COMPLIANT THUS FAR TODAY, MOOD STABLE WITH CONSTRICTED AFFECT. DR. REDDING ALREADY ON THE UNIT TO MEET WITH THE PT, NO FURTHER ORDERS AT THIS TIME. PT DID NOT GO TO ANY GROUPS AND PRESENT WITHIN THE PERIPHERY. AFTER TEAM, DECISION WAS MADE FOR PT TO BE PLACED ON 1:1 SITTER ONLY AT NIGHT (7PM-7AM) AND PRIVATE ROOM ONLY - THIS INFORMATION IS PASSED IN REPORT AND DOCUMENTED WITHIN OUR INTERDEPARTMENT COMMUNICATION BOARD. NO ISSUE OR COMPLAINTS REPORTED OR OBSERVED.
--- NOTE | 2016-12-14 13:44 | History & Physical ---
General Information and HPI History of Present Illness: This young male was brought in by police for psychiatric evaluation and admission when he expressed some suicidal ideation. The patient reports that he was hearing voices and he has previous history of psychiatric admissions in the past but is not taking any medication. He reports that he is homeless and does not have any place to live. He denies any ongoing medical problems and does not take any medication at this time claims his parents are alive but does not know of any family history of significant illness. His single never and no children and he admits to smoking cigarettes and occasional beer. He denies any drug abuse but his urine is positive for cocaine. Allergies/Medications Allergies: Coded Allergies: No Known Allergies (12/11/16) Home Med list No Known Home Medications Past History Travel History Traveled to [place] past 21 day No Medical History Neurological: NONE EENT: NONE Cardiovascular: NONE Respiratory: asthma Gastrointestinal: NONE Hepatic: NONE Renal: NONE Musculoskeletal: NONE Psychiatric: bipolar disease, depression, schizophrenia, substance abuse Endocrine: NONE Blood Disorders: NONE Cancer(s): NONE CLINICAL PROGRAM CONSULTANT/Reproductive: NONE History of MRSA: No History of VRE: No History of CDIFF: No Isolation History: Standard Surgical History Surgical History: non-contributory Past Family/Social History Psychosocial History Where do you live? Other ETOH Use: denies use Illicit Drug Use: denies illicit drug use Employment History Employment Employed Profession/Employer Works construction; one job in 5 years. Review of Systems Review of Systems Constitutional: Reports: see HPI. Denies: no symptoms. EENTM: Denies: no symptoms. Cardiovascular: Denies: no symptoms. Respiratory: Denies: no symptoms. GI: Denies: no symptoms. Genitourinary: Denies: no symptoms. Musculoskeletal: Denies: no symptoms. Skin: Denies: no symptoms. Neurological/Psychological: Reports: see HPI, depressed, emotional problems. Hematologic/Endocrine: Denies: no symptoms. Exam & Diagnostic Data Last 24 Hrs of Vital Signs/I&O Vital Signs Date Time Temp Pulse Resp B/P B/P Pulse O2 O2 Flow FiO2 Mean Ox Delivery Rate 12/14 0850 97.2 88 123/78 12/13 1552 90 106/52 Physical Exam General Appearance Alert, Oriented X3, Cooperative, No Acute Distress Skin No Rashes, No Breakdown, No Significant Lesion HEENT Atraumatic, PERRLA, EOMI, Mucous Membr. moist/pink Neck Supple, No JVD, No thryomegaly, +2 Carotid Pulse wo Bruit Lymphatic Cervical nl Cardiovascular Regular Rate, Normal S1, Normal S2, No Murmurs, Gallops, Rubs Lungs Clear to Auscultation, Normal Air Movement Abdomen Soft, No Tenderness, No Hepatospenomegaly, No Masses Neurological Exam Findings: Normal Gait, Normal Speech, Strength at 5/5 X4 Ext, Normal Tone, Cranial Nerves 3-12 NL Cranial Nerves II through XII: Grossly within normal limits and intact Extremities No Clubbing, No Cyanosis, No Edema, No Tenderness/Swelling Assessment/Plan Assessment: This young male is admitted when he was brought in by police since he has been in police custody. He reports that he was hearing some voices and there is a history of suicidal ideation and therefore he was admitted for increased depression. There is no acute physical problem at this time and he denies any significant physical complaints. His blood work showing the CBC and electrolytes are normal and his liver functions are also normal. His urine is positive for cocaine and there is no acute medical problem at this time and he does not require any workup or treatment from medical standpoint. As Ranked By This Provider Problem List: 1. Suicidal ideation 2. Auditory hallucinations Miscellaneous Miscellaneous Documentation Attending Case Discussed With: HATTIE MARTEL,AMADOR Enriquez Primary Care Physician: PATIENT HAS NO PRIMARY CARE DR Patient sees these Specialists none Level of Patient Care: LEXY Calderon Attending MD Review Statement Attending Statement Attending MD Statement: examined this patient, reviewed EMR data (avail), discussed with nursing Attending Assessment/Plan: This young male is admitted for hallucinations and increased depression with some suicidal ideation. He has previous history of psychiatric illness and admission in a psychiatric hospital. There is no acute medical problem at this time and he does not require any workup or treatment from medical standpoint and will be seen only as needed.
--- NOTE | 2016-12-14 13:56 | SOCIAL WORKER PROG NOTE PSYCH ---
Social Work Progress Note Progress Note Attempted to speak with Gabo briefly this morning as he just sat down to eat his breakfast. He ignored me and Marci Gillis APRN. Marci and I attempted to speak with him again around 12:30pm. He was sleeping in his room, but didn't wake when prompted. Gave Melonie Sloan from [facility] and update on current mental status and progress. He said he will tell the court he is not discharging today and it's a day to day process, but tomorrow seems questionable. Gabo came to my office at 1:30. He appeared tired, mood irritable. He complained about another patient on the unit who has been disruptive. Empathized with his concerns. He asked about information regarding his court case. He wanted to know what is going to happen and whether or not he is going to penitentiary. I told him I didn't have the answer to that and only the truck engine assembler can decide that. He wasn't pleased with my response and asked why I hadn't talked to the court. I told him he can sign a release if he wants for [place] [address]. He agreed to do that.
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
--- NOTE | 2016-12-14 14:12 | SOCIAL WORKER PROG NOTE PSYCH ---
Social Work Progress Note Progress Note 12/14/2016 Patient requesting information from court on weather he has a public health aides teacher assigned to his case. Patient agreeable to signing SASHA for social contact worker to speak to [place] court. Court contacted and this proposal manager writer learned that no public health aides teacher assigned to his case. credit collections clerk to review his file to see if additional information is required from the hospital for his file. All above information was shared with the patient. Patient asking how long he needs to stay in hospital and this proposal manager writer informed him that his discharge would not be today and it will be further discussed at rounds in the morning.
--- NOTE | 2016-12-14 16:09 | SOCIAL WORKER PROG NOTE PSYCH ---
Social Work Progress Note Progress Note 12/14/2016 3:57 pm This check writer salesperson received a return call from [facility] courts clerks office who indicated the the hospital needs to call the [place] Creative Assistant's Office daily to inform the court Gabo is still under our care. The phone number to call the [place] Creative Assistant's office is [phone]. Call placed today to the [place] Creative Assistant's plant protection officer who reports that Gabo is still technically under police custody so he needs to appear in court the day of discharge. She reports that he will have a registered public surveyor the day he appears.Patient informed of registered public surveyor.
--- NOTE | 2016-12-14 17:37 | NUR ---
PT IS ISOLATIVE/WITHDRAWN, SPENDING THE MAJORITY OF TIME IN PT ROOM AND IN PERIPHERY. APPEARS LETHARGIC, SLEEPING FOR EXTENDED PERIODS OF TIME. MOOD IS STABLE, AFFECT APPEARS FLAT/CONSTRICTED, COMMUNICATION IS ORGANIZED, AND APPETITE IS NORMAL.
[2016-12-14 19:47] VITALS: BP 135/80
--- NOTE | 2016-12-15 06:49 | NUR ---
UPON AWAKENING FROM A NAP AT 1929, PT BECAME UPSET THAT HE HAD A CONTINUOUS OBSERVER. HE STATED HE HAD NOT BEEN TOLD ABOUT THIS OBSERVER FROM 7PM TO 7AM AND HE FELT LIED TO. PT BECAME BELLIGERENT, SWEARING AND POSTURING ON THE UNIT. AT 1944, SECURITY WAS CALLED. PT WAS GIVEN 2MG ATIVAN PRN, 50 MG SEROQUEL PRN, AND NEURONTIN 300. PT WAS QUIETER AFTER THIS. AT 2044, PT ASKED FOR, AND RECEIVED, HS SEROQUEL ALONG WITH 50 MG TRAZADONE PRN. AT 2129, SECURITY WAS CALLED DOWN TO THE UNIT AGAIN BECAUSE PT WAS EATING IN HIS ROOM AND HE WOULD NOT STOP. PT WAS THEN TOLD TO STAY IN HIS ROOM AND USE THE BATHROOM AGACENT WHEN NEEDED. PT WAS UP A FEW TIMES TO USE THE BATHROOM, BUT SLEPT UNTIL AM BLOOD DRAW.
--- NOTE | 2016-12-15 08:35 | SOCIAL WORKER PROG NOTE PSYCH ---
See Addendum Social Work Progress Note Progress Note Attempted to speak with Gabo this morning around 8:20am. He was sleeping in his room. Would not wake when spoken to. Left a message with Gabo's Aunt Eleazar inquiring if she is aware of a place he can stay if he is not incarcerated. Attempted to speak with Gabo again. Woke him up from sleeping. Stated I was not here this afternoon and we would like to speak with him. He said he needed to eat breakfast and started walking to the kitchen. A while later he was back in bed sleeping. Called the putty and patch worker's Office and spoke with Suzanne. Suzanne shared that if he is not ready to go tomorrow by 9am he will be held in lock up until court on Monday. I asked if she had any thoughts about what is going to happen? She stated he probably wouldn't be getting a CHEESE SPECIALIST and would most likely go to [place] [facility]. She said he will have a public health inspector assigned. She asked if we had any recommendations? I told her that he is ill and should be in a facility for people with mental health. She said his file will indicate medical attention.
--- NOTE | 2016-12-15 10:36 | CP SOUTH PROGRESS NOTE PSYCH ---
Psych (Inpt) Progress Note Progress Note Include the following elements, when applicable: Involvement in the active treatment of the patient with behavioral observations of the patient and the patient's response to the treatment. Review of the ongoing treatment process in the context of the treatment plan. Indication of how multi-disciplinary staff members are carrying out the treatment plan. Plans for future interventions and recommendations for revision of the treatment plan. Liaison with other physicians/providers. Progress Note: I discussed this patient's progress to date, current mental status, treatment process in the context of the treatment plan, and discharge planning with staff/ team in the daily morning inpatient team meeting. I also met with the patient myself in individual session. Current Medications Sig/Marianela Start time Last Medication Dose Route Stop Time Status Admin Acetaminophen 650 MG Q6P PRN 12/12 1330 AC PO Al Hydroxide/Mg 30 ML Q4-6 PRN PRN 12/12 1330 AC Hydroxide PO Divalproex Sodium 1,000 MG DAILY 12/15 1000 DC PO Divalproex Sodium 1,250 MG DAILY 12/15 1000 AC PO Divalproex Sodium 750 MG DAILY 12/13 1000 DC 12/14 PO 0947 Gabapentin 300 MG Q6P PRN 12/12 1330 AC 12/14 PO 1945 Lorazepam 1.5 MG ONE TIME ONE 12/14 1430 DC 12/14 PO 12/14 1431 1429 Lorazepam 0.5 MG .STK-MED ONE 12/14 1429 DC PO 12/14 1430 Lorazepam 2 MG Q4 HRS NEEDED PRN 12/13 1200 AC 12/14 PO 1930 Magnesium Hydroxide 30 ML AT BEDTIME NEED.. 12/12 1330 AC PO Nicotine 2 MG Q2 HRS NEEDED PRN 12/13 1430 AC PO Quetiapine Fumarate 400 MG QPM 12/14 2200 AC 12/14 PO 2045 Quetiapine Fumarate 50 MG Q4 HRS NEEDED PRN 12/13 1200 AC 12/14 PO 1945 Quetiapine Fumarate 300 MG QPM 12/11 2200 DC 12/13 PO 2230 Trazodone HCl 50 MG AT BEDTIME NEED.. 12/12 1330 AC 12/14 PO 2053 Vital Signs Date Time Temp Pulse Resp B/P B/P Pulse O2 O2 Flow FiO2 Mean Ox Delivery Rate 12/14 1946 97.7 92 135/80 Laboratory Tests 12/15 0654 Toxicology Valproic Acid (50 - 120 ug/mL) 30.4 L A: Chart, progress notes, labs, vital signs and medication list reviewed. VPA = 30.4ug/mL. Per nursing staff, patient continues perseverating about his belongings (mainly cell phone) which remain in PD custody. Has been isolative to room for majority of shift, sleeping. Occasionally yells profanities and sexually inappropriate remarks. He comes out of room for meals only, otherwise does not engage in milieu. Patient had an agitated episode last je requiring PRNs Seroquel 50mg and Ativan 2mg po. I attempted meeting with the patient earlier this morning at 8:20AM and again at 10:19AM. On both encoutners, the patient was observed in bed and did not acknowledge my presence. He then got out of bed, stated he didn't eat breakfast and walked passed me without acknowledgement and into the kitchen. Patient seen at 3PM. He was initially slow to respond, laying in bed with his eyes closed. I told him I had information regarding his court matters. I informed him that he will be provided with a public safety teacher during his next court appearance. He asked if he will be going to [facility] when he leaves here. I told him that that is a possibility, but I couldn't say for certain as that would be decided by the court. He expressed feeling worried about the possibility of returning to [facility]. He asked if the hospital could provide him with a letter to give to the court recommending that he receive treatment rather than go to [facility]. I told him that the ophthalmic technician's Office is aware that we are recommending further psychiatric treatment. Patient became agitated by this response, gradually settled and stated he had been told this before. Reported that he had been at [facility] for 6 months and "all they did was drug me" resulting in medication side effects. 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 States these have been keeping him up during the night, that NMAs are quite ditressing to him. He reports passive SI, denies plan or intent. Reports mostly being frustrated over current legal situation. States he didn't update his address to the sex offender registry because he was homeless and had no current address to provide. Mood, "not good." Affect constricted, irritable. Speech loud at times, regular in rate and tone. Intermittent eye contact. Denies HI, AH and VH. Denies PI and delusions. Thought content concrete. Thought content anxious/depressed. Sleep: "not good." Energy level: "I'm not sleepin' so not good." Appetite: "fine." Insight/judgement limited. Patient reports tolerating recent increase in Seroquel from 300mg to 400mg QHS well, denies SEs. Reviewed the risk/benefit/side effect profiles of Prazosin to target NMAs. Patient verbalized understanding and agreeable to trial 1mg QHS. Patient also agreeable to increasing Depakote ER from 750mg daily to 1250mg daily for mood stabilization. P: -continue 1:1 obs (7PM - 7AM) for safety to others; continue private room. -increase Depakote ER from 750mg daily to 1250mg daily for mood stabilization. Rpt level 12/18/16. -start Prazosin 1mg QHS for NMAs. -continue Seroquel 400mg QHS for clear thoughts/mood stabilization. -arrange discharge with [facility] once patient is psychiatrically stable, as they will need to pick him up from unit.
[2016-12-15 12:42] VITALS: BP 120/70
--- NOTE | 2016-12-15 13:55 | NUR ---
PT NOT VISIBLE MUCH IN THE MILIEU TODAY. PT HAS BEEN IN HIS ROOM MAJORITY OF THE DAY SLEEPING. HE HAS NOT BEEN IN ANY GROUPS TODAY, AND KEEPS INTERACTIONS TO A MINIMAL. PT WAS COMPLIANT ABOUT GETTING HIS AFTERNOON VITALS. HE REPORTED NO THOUGHTS TO HURT HIMSELF.
--- NOTE | 2016-12-16 00:01 | IP INCIDENTAL NOTE PSYCH ---
Incidental Note Notation: Patient reported to me by evening staff to be engaging in tantrums in response to receiving a negative answer to unreasonable request (that his cell phone be brought to him immediately by the [place] police); he refused to settle himself down, would not accept clarifications and support from staff or the possible benefit of oral PRN medication. I ordered a single dose of parenteral Thorazine , 50mg, primarily for acute sedative/anxiolytic effect; I also doubled dose of PRN Seroquel and added a back-up of Thorazine to it and discontinued the PRN's of Ativan and Neurontin in favor of the above less disinhibiting and more potent medications. I also accelerated the increase in dose of Depakote ER and if level in AM 12/16/2016 not even close to minimal therapeutic range by then would recommend further increase in Depakote ER to 2,000mg/day over the coming weekend with close monitoring; the dose can always be lowered if level on 12/19/2016 is thought to be in excess of what is required, but this patient needs and deserves what amounts to an emergency effort to control any of his behavior which is related to thought/mood disorders despite the likelihood that it is to a major degree volitional/under his control and with his full awareness of what he is doing. However, from how this patient's behavior has been described to me by staff erasmo and other clinical staff earlier this week my clinical impression would be that inappropriate behaviors and outbursts are predominantly volitional , not driven by major psychiatric disorder, but rather goal directed in order to get his own way, intimidate others, manipulate staff; the height of his bold manipulative and narcissistic behavior was demonstrated in his requesting earlier today that his clinician write a letter to court recommending he be sent for "treatment" instead of serving a fpc sentence if found guilty of criminal behavior when every staff report has described his complete disregard for and rejection of treatment throughout this admission. I would recommend that he be returned to [place] police custody [facility] in order to not further delay his required court appearance. He is accepting no treatment here on [facility] and threatening both the clinical care and safety of the patients who are participating in and showing benefit from their treatment in this setting.
--- NOTE | 2016-12-16 01:48 | NUR ---
PT CONTINUES ON 1:1 FROM 1900- 0700. PT WAS ON THE PHONE A GOOD DEAL OF THE EVENING APPARENTLY TRYING TO RECOVER HIS MOTHER'S TELEPHONE NUMBER- HIS TELEPHONE IS IN THE [place] [employer]. DURING THIS TIME, THE PATIENT WAS SOMEWHAT IRRITABLE AND SOMEWHAT MENANCING ON THE UNIT. HE AGREED TO TAKE ATIVAN 2 PO PRN AND TRAZADONE 50 PO PRN AT 2118 FOR IRRITABILITY. PT MAINTAINED DECENT CONTROL UNTIL 2299, WHEN THE TELEPHONE WAS SHUT OFF. HE BEGAN TO BANG ARNOLD AND THEN BANGED HIS HEAD ON WALL. SECURITY WAS CALLED. AT THAT POINT, PT INITIALLY REFUSED TO TAKE PO PRN MEDICATIONS. THE SENIOR COPYWRITER PSYCHIATRIST DR KUHN WAS CALLED- HE ORDERED A NOW DOSE OF 50 MG CPZ IM AND ASKED THAT PRN MEDS BE GIVEN. AT 2324, PT AGREED TO TAKE SEROQUEL 50 PO PRN AND NEURONTIN 300 PO PRN, BUT DID NOT WANT THE CPZ 50 IM. PT WAS ASKED TO STAY IN HIS ROOM AND SECURITY WAS ASKED TO REMAIN ON UNIT. AT 2354, PT CAME OUT OF HIS ROOM AND REQUESTED IM CPZ 50. HE RECEIVED SUCH. THE PATIENT SOON FELL ASLEEP AFTER AND IS SLEEPING UNTIL THIS 0155 MOMENT.
--- NOTE | 2016-12-16 07:20 | NUR ---
AFTER THE BEHAVIORS OF LAST NIGHT, PT SLEPT THRU THE NIGHT. BLOOD DRAWN IN THE AM.
--- NOTE | 2016-12-16 14:49 | CP SOUTH PROGRESS NOTE PSYCH ---
See Addendum Psych (Inpt) Progress Note Progress Note Include the following elements, when applicable: Involvement in the active treatment of the patient with behavioral observations of the patient and the patient's response to the treatment. Review of the ongoing treatment process in the context of the treatment plan. Indication of how multi-disciplinary staff members are carrying out the treatment plan. Plans for future interventions and recommendations for revision of the treatment plan. Liaison with other physicians/providers. Progress Note: I discussed this patient's progress to date, current mental status, treatment process in the context of the treatment plan, and discharge planning with staff/ team in the daily morning inpatient team meeting. I also met with the patient myself in individual session. Current Medications Sig/Marianela Start time Last Medication Dose Route Stop Time Status Admin Acetaminophen 650 MG Q6P PRN 12/12 1330 AC PO Al Hydroxide/Mg 30 ML Q4-6 PRN PRN 12/12 1330 AC Hydroxide PO Chlorpromazine 50 MG Q4H PRN 12/15 2330 AC PO Chlorpromazine 50 MG .STK-MED ONE 12/15 2330 DC IM 12/15 2331 Chlorpromazine 50 MG STAT STA 12/15 2326 DC 12/16 IM 12/15 2327 0000 Divalproex Sodium 1,500 MG 0800 12/16 0800 AC 12/16 PO 1013 Divalproex Sodium 1,250 MG DAILY 12/15 1000 DC 12/15 PO 1033 Gabapentin 300 MG Q6P PRN 12/12 1330 DC 12/15 PO 2325 Lorazepam 2 MG Q4 HRS NEEDED PRN 12/13 1200 DC 12/15 PO 2119 Magnesium Hydroxide 30 ML AT BEDTIME NEED.. 12/12 1330 AC PO Nicotine 2 MG Q2 HRS NEEDED PRN 12/13 1430 AC PO Prazosin HCl 1 MG AT BEDTIME 12/15 2200 AC 12/15 PO 2152 Quetiapine Fumarate 50 MG .STK-MED ONE 12/15 2337 DC PO 12/15 2338 Quetiapine Fumarate 100 MG Q4 HRS NEEDED PRN 12/15 2330 AC PO Quetiapine Fumarate 50 MG .STK-MED ONE 12/15 2329 DC PO 12/15 2330 Quetiapine Fumarate 50 MG .STK-MED ONE 12/15 2319 DC PO 12/15 2320 Quetiapine Fumarate 400 MG QPM 12/14 2200 AC 12/15 PO 2118 Quetiapine Fumarate 50 MG Q4 HRS NEEDED PRN 12/13 1200 DC 12/15 PO 232 Trazodone HCl 50 MG .STK-MED ONE 12/15 2120 DC PO 12/15 2120 Trazodone HCl 50 MG AT BEDTIME NEED.. 12/12 1330 DC 12/15 PO 2118 Vital Signs Date Time Temp Pulse Resp B/P B/P Pulse O2 O2 Flow FiO2 Mean Ox Delivery Rate 12/16 2151 120/70 A: Chart, progress notes, vital signs and medication list reviewed. Patient refusing vital signs and groups today. Per nursing reports, patient was agitated last night due to not having his cell phone; acted out by banging his head. He received IM Thorazine 50mg for agitation. Please see Dr. Camacho's incidental note for further information regarding event. Patient seen in his room at 2:10PM, together with Bisi Shearer LCSW. He remains in bed. Made poor eye contact, and barely acknowledged our presence initially. He made inconsistent reports, first stating he felt "alright" followed by stating he does not feel good. States he received a lot of medication last evening. Showed no insight into his behaviors being inappropriate; continued demanding that the hospital retrieve his cell phone from the police station. Patient became angry when he was informed again that this would not happen. Patient reports AH today, would not specify on content. He reports suicidal ideation but refused to answer further questions surrounding these thoughts. States that if he had a plan he would not disclose it. I reviewed with the patient that yesterday he had asked me to write a letter to the court recommending that he receive treatment rather than nursing home time. I highlighted to the patient that he has not engaged in any treatment on this unit other than for taking medications. He is continuously observed in his room sleeping and being oppositional with staff on unit. He appears demanding and his agitated behaviors often are triggered by him not getting his way which leads me to suspect that much of his behavior is volitional rather than caused by a major psychiatric disorder. I informed the patient that we will continue monitoring his symptoms over the weekend, however, will have a very low threshold for any volitile behavior exhibited on this unit. He was encouraged to attend milieu groups, continue taking scheduled medications and utilize PRN medications to remain in behavioral control and tx symptoms. Patient was dismissive, terminated interview, and walked out of his room. P: -monitor on 1:1 (7P-7A) for safety to others; continue in private room. -cont. depakote er 1500mg daily for mood stabilization. VPA level Monday morning. -low threshold for putting patient on 1:1 ATC if continued volitile behavior; utlize PRN medications for agitation. -cont. prazosin 1mg QHS for NMAs. -cont. PRNs as ordered for agitation/hallucinations. -anticipate D/C Monday into PD custody.
--- NOTE | 2016-12-16 14:55 | SOCIAL WORKER PROG NOTE PSYCH ---
Social Work Progress Note Progress Note Spoke with Melonie Sloan this morning. Updated him on Gabo's current presentation on the unit and told him I would be getting back to him after speaking with the team about potential discharge. After further discussion, Marci Gillis APRN and I contacted Melonie Sloan and asked if Gabo would receive medication and be on a suicide watch if necessary? We were told that medications could be given to people at their dosed times and there are cameras monitored in real time by dispatch. Marci and I went into Gabo's room. He remained in bed. Asked how he was doing today? He said "fine." He got more irritable the more we tried engaging in discussion. He expressed his anger towards being over medicated last night. I told him that was due to him punching cormier and he is in control of his own behavior. Asked about hearing voices today? He said he was. He was asked if he was suicidal? He said he was and that he was banging his head on the wall last night because he wanted to hurt himself. I asked if he had a plan to hurt himself today? He stated "If I did I wouldn't tell you." He kept insisting that he get his cell phone from [employer]. I told him that wasn't going to happen. He kept insisting that I could get his phone or Mother's phone number off his phone. I told him that it sounded like he called [place] [employer] himself yesterday. He was asked what he was told? He didn't answer and got up and walked out of the room.
--- NOTE | 2016-12-16 15:00 | NUR ---
PT HAS BEEN ISOALTIVE IN ROOM FOR MOST OF THE SHIFT. PT HAS COME OUT ONLY FOR MEALS. PT MOOD IS STABLE WITH A CONSTIRCTED AFFECT. PT HAS NOT HAD ANY BEHAVIORAL PROBLEMS TODAY. PT IS NOT ATTENDING GROUPS. PT DENIES SI THOGUHTS WHEN ASKED. PT IS ON 1:1 ONLY FROM 1900 TO 0700.
--- NOTE | 2016-12-16 17:51 | NUR ---
Patient has been isolating in his room mostly on bed rest, came out during lunch for his meal unable to participate in any of the group therapies/ activities or peers interaction. During the evening room check, Depokote 250 mg ER believed to be patient medication was found under the patient's pillow. This incident was brought to LANDON Covarrubias) who decided to order a mouth check on the patient with every medication administration.
--- NOTE | 2016-12-16 18:38 | NUR ---
PT IS LETHRGIC, SLEEPING IN PT ROOM FOR EXTEDNED PERIODS FO TIME. WHEN ENTERING MILIEU PT SPENDS THE MAJORITY OF TIME PACING ABOUT THE PERIPHERY WITH LIMITED INTERACTION WITH OTHERS. RELATIVELY CALM AND COOPERATIEVW ITH OTHERS. MOOD IS STABLE, AFFECT APPEARS EUTHYMIC TO FULL RANGE, COMMUNICATION IS ORGANIZED AND APPEARS NORMAL IN ALL RESPECTS, AND APPETITE IS NORMAL. PT DENIES SI AT THIS TIME.
[2016-12-16 19:47] VITALS: BP 102/51
--- NOTE | 2016-12-17 06:43 | NUR ---
PATIENT SLEPT ALL NIGHT WITH 1:1 SITTER MONITORING AT ALL TIMES.
[2016-12-17 08:58] VITALS: BP 124/76
--- NOTE | 2016-12-17 12:28 | CP SOUTH PROGRESS NOTE PSYCH ---
Psych (Inpt) Progress Note Progress Note Include the following elements, when applicable: Involvement in the active treatment of the patient with behavioral observations of the patient and the patient's response to the treatment. Review of the ongoing treatment process in the context of the treatment plan. Indication of how multi-disciplinary staff members are carrying out the treatment plan. Plans for future interventions and recommendations for revision of the treatment plan. Liaison with other physicians/providers. Progress Note: Patient seen chart reviewed d/w nursing staff Patient presents as irritable isolative laying in bed, he refused to speak with wrtier in MD room and brief interview conducted in patients room as he layed in bed under blanket. Unwilling to speak with wrtier and reported ongoing "bad dreams" but denies si/hi or psychosis. CM, laying in bed uncooperative +pmr limited eye contact. soft slow speech. irritable mood and affect. concrete denies si/hi or psychosis. i/j both limited a/p BD depressed with psychosis. r/o aspd continue current tx plan
--- NOTE | 2016-12-17 13:48 | NUR ---
PT HAS BEEN ISOLATIVE AND WITHDRAWN TO ROOM, DID NOT ATTEND ANY GROUPS TODAY, ONLY LEFT ROOM FOR MEALS, NO ISSUES OR COMPLAINTS THUS FAR, HAS ALSO REMAINED IN BEHAVIORAL CONTROL THROUGHOUT THE DAY.
[2016-12-17 15:00] VITALS: BP 124/76
[2016-12-17 16:04] VITALS: BP 149/92
--- NOTE | 2016-12-17 19:37 | NUR ---
PT HAS BEEN PRESENT THROUGHOUT THE [facility] AND HAS BEEN COOPERATIVE, SOCIALIZING WITH STAFF AND PEERS. PT REPORTED THAT HE VOMITTED AFTER DINNER INTO THE SINK OF THE KITCHEN. THE RN WAS NOTIFIED. PT VITALS HAVE BEEN STABLE AND PT HAS DENIED ANY THOUGHTS OF SI WHEN ASKED BY STAFF.
[2016-12-17 20:11] VITALS: BP 126/88
--- NOTE | 2016-12-18 06:49 | NUR ---
PATIENT GIVEN EXTRA PRN DOSE OF THORAZINE 50MG, AND A ONE TIME DOSE OF 50MG BENADRYL AT [address] WHITNEY, DUE TO CONTINUING ANXIETY/PACING UNIT; MEDS SUCCESSFUL; PATIENT SLEPT ALL NIGHT AFTER MIDNIGHT.
[2016-12-18 11:59] VITALS: BP 127/78
--- NOTE | 2016-12-18 13:06 | NUR ---
PT HAS BEEN ISOLATIVE, QUIET AND OVERALL COOPERATIVE. MOOD STABLE WITH FLAT AFFECT, IRRITABLE EDGE BUT NO ISSUES OR COMPLAINTS REPORTED OR OBSERVED. REPORTED + SLEEP, DID NOT ATTEND GROUPS TODAY.
--- NOTE | 2016-12-18 13:11 | CP SOUTH PROGRESS NOTE PSYCH ---
Psych (Inpt) Progress Note Progress Note Include the following elements, when applicable: Involvement in the active treatment of the patient with behavioral observations of the patient and the patient's response to the treatment. Review of the ongoing treatment process in the context of the treatment plan. Indication of how multi-disciplinary staff members are carrying out the treatment plan. Plans for future interventions and recommendations for revision of the treatment plan. Liaison with other physicians/providers. Progress Note: Patient seen chart reviewed d/w nursing staff No overnight events. Medication compliant no se reported. required some prn thorazine and benadryl with good effect. He states his mood as "ok" and improved from yesterday as he spoke with senior medical writer in office rather than bedroom. States ongoing NM at night. denies si/hi or psychosis. CM, ASA no pmr/pma. Cooperative fair eye contact. soft slow speech. ok mood constricted affect. concrete denies si/hi or psychosis. i/j limiited a/p bd depressed with psychosis , PTSD will increase prazosin for NM, no other changes
[2016-12-18 16:27] VITALS: BP 129/84
--- NOTE | 2016-12-18 19:19 | NUR ---
YAIR CORONEL MADE AWARE OF PRECAUTIONS THAT INCLUDE, SAFETY, POOR BOUNDARIES, SI, AND FREQUENT MONITORING WHILE IN BATHROOM. YAIR VERBALIZED UNDERSTANDING OF THESE PRECAUTIONS.
--- NOTE | 2016-12-18 21:28 | NUR ---
PT IN ROOM MOST OF THE EVENING DID NOT ATTEND WRAP UP WAS SLEEPING SITTER WITHIN SITE OF PT. NO ISSUES ALL EVENING.
--- NOTE | 2016-12-19 05:21 | NUR ---
SLEPT WELL AWAKE FOR SEROQUEL ONCE THEN BACK TO SLEEP.
--- NOTE | 2016-12-19 07:34 | Patient Discharge Instructions ---
Psych Discharge Inst General Discharge Information Reason for Admission: Suicidal ideation and command auditory hallucinations in the setting of cocaine intoxication. Psy Discharge Primary Diag+ Bipolar disorder, MRE depressed with psychotic features. Psy Discharge Secondary Diag+ Cocaine use disorder; R/O PTSD; R/O Antisocial traits. Summary Tests/Major Procedures N/A Studies Pending at DC: N/A Patient Instructions Contact Information Your Psychiatrist on [facility] was HATTIE MARTEL,AMADOR Enriquez/ QUINN GARCIA APRN. * If you are experiencing an emergency related to this hospitalization, please call [phone] to contact the treating psychiatrist or the psychiatrist-on- call. * To Request a copy of your medical records, please contact the Medical Records Department at [phone]. * To request results of studies pending at the time of discharge, please call [phone]. * Continue your Medications until directed to stop by your Healthcare provider. General Medication Information Please continue to take your new medications and your continued home medications , unless otherwise indicated on your discharge medication list, or unless directed by your or MARCIA to stop them. Special Instructions: DIET: Regular. ACTIVITY LEVEL: No restrictions. Advance Directives Does the Patient have Medical Advance Directives No/Refused further info Does Pt have Psychiatric Advance Directives? No/Refused further info Does Patient have a Designated Surrogate Decision Maker: No Information About Psychiatric Advance Directives Provided? Refused Discharge Plan Post Hospital Treatment Plan: The patient is to appear in [place] [address] at 9AM tomorrow, 12/19/16. Follow-up with [facility] for halfway intake. Follow-up with [facility] for walk-in intake for outpatient dual treatment.
[2016-12-19 08:09] VITALS: BP 152/98
--- NOTE | 2016-12-19 09:07 | CP SOUTH PROGRESS NOTE PSYCH ---
Psych (Inpt) Progress Note Progress Note Include the following elements, when applicable: Involvement in the active treatment of the patient with behavioral observations of the patient and the patient's response to the treatment. Review of the ongoing treatment process in the context of the treatment plan. Indication of how multi-disciplinary staff members are carrying out the treatment plan. Plans for future interventions and recommendations for revision of the treatment plan. Liaison with other physicians/providers. Progress Note: I discussed this patient's progress to date, current mental status, treatment process in the context of the treatment plan, and discharge planning with staff/ team in the daily morning inpatient team meeting. I also met with the patient myself in individual session. Current Medications Sig/Marianela Start time Last Medication Dose Route Stop Time Status Admin Acetaminophen 650 MG Q6P PRN 12/12 1330 AC 12/17 PO 1908 Al Hydroxide/Mg 30 ML Q4-6 PRN PRN 12/12 1330 AC Hydroxide PO Chlorpromazine 50 MG Q4H PRN 12/15 2330 AC 12/18 PO 2306 Divalproex Sodium 1,500 MG 0800 12/16 0800 AC 12/18 PO 1103 Magnesium Hydroxide 30 ML AT BEDTIME NEED.. 12/12 1330 AC PO Nicotine 2 MG Q2 HRS NEEDED PRN 12/13 1430 AC PO Prazosin HCl 2 MG AT BEDTIME 12/18 2200 AC 12/18 PO 2223 Prazosin HCl 1 MG AT BEDTIME 12/15 2200 DC 12/17 PO 2134 Quetiapine Fumarate 100 MG Q4 HRS NEEDED PRN 12/15 2330 AC 12/19 PO 0328 Quetiapine Fumarate 400 MG QPM 12/14 2200 AC 12/18 PO 2223 Vital Signs Date Time Temp Pulse Resp B/P B/P Pulse O2 O2 Flow FiO2 Mean Ox Delivery Rate 12/19 0809 96.8 79 152/98 12/18 2223 97.8 97 16 129/84 12/18 1627 97 129/84 12/18 1159 97.8 88 127/78 Laboratory Tests 12/19 0820 Toxicology Valproic Acid (50 - 120 ug/mL) 39.2 L A: Chart, progress notes, labs, vital signs, and medication list reviewed. VPA level subtherapeutic. Per progress notes this past weekend, the patient showed fair behavioral/ physical control. There were no reports of SI, HI, AVH. There were no significant events that occured. Copy of TECHNICAL SERVICES LIBRARIAN in paper chart, signed 12/16/16. Patient seen at 10:16AM, on the date of discharge. He presents calm, cooperative , initiating conversation with this auto service writer. Reports mood is "good." Affect constricted, non-labile. Speech normal in rate, tone and volume. Eye contact appropriate. He offers no complaints. States nightmares have resolved. Reports improved sleep, stable appetite and energy level. Denies acute symptoms of anxiety and depression. Denies feeling hopeless, helpless, worthless and guilty. Denies passive and active suicidal ideation, plans and intent. States and also believes he will not harm himself or others. Denies homicidal ideation. Denies auditory and visual hallucinations. No evidence of paranoia, or mariposa delusions. Denies racing thoughts. Expressed feeling better about receiving a TECHNICAL SERVICES LIBRARIAN and plans to stay with a friend in [place] after picking up his belongings at PD station. Reports tolerating medications well, denies SEs. Recommended increasing Depakote ER to 2,000mg on discharge, patient refused. Stated feeling good on current regimen. Agreeable to continue taking current regimen. Reports feeling safe and ready for discharge. P: -discharge today to self-care w/ TECHNICAL SERVICES LIBRARIAN to appear in [place] [address] tomorrow, 12/20/16 at 9AM. Bus fare provided. -f/u at [facility] for walk-in evaluation Mondays (today) between 12:30-3:30PM, or 1:30-4:30PM. patient encouraged to go today. -referral faxed to [facility]; patient to f/u. Contact info provided. -all discharge prescriptions e-prescribed to [facility], today. -advised to call 211 for assistance with housing/shelters as needed. -advised that in the event of an emergency, call 911/go to nearest emergency department. patient verbalized understanding of all instructions.
[2016-12-19] MEDS ORDERED: PRAZOSIN HCL2 M1 PO (10:11)
[2016-12-19] MEDS ORDERED: DIVALPROEX SOD500 M3 PO (10:11)
[2016-12-19] MEDS ORDERED: QUETIAPINE FUM200 M1 PO (10:11)
--- NOTE | 2016-12-19 10:43 | NUR ---
OUT OF ROOM THIS AM. DIET TAKEN WELL VITAL SIGNS STABLE. DISCHARGE PLAN EXPLAINED TO [facility]. EXPRESSED UNDERSTANDING OF DISCHARGE PLAN AND EDUCATION INFORMATION PROVIDED. COMPLIANT WITH [employer] DENIES SI, HI AND AH AT PRESENT. NO ANXIETY OR AGGITATED NOTED OR REPORTED.
--- NOTE | 2016-12-19 11:11 | SOCIAL WORKER PROG NOTE PSYCH ---
Social Work Progress Note Progress Note Marcidenis Gillis APRN and I spoke with Gabo this morning. He reported no SI, no psychosi. Marci informed him he would be discharging today. I reiterated that he would be going back to police custody. He stated that wasn't true and he was given a SCREEN HANDLER on Monday. I told him I would clarify this with police. Called Melonie Sloan with [facility]. He reported that the SCREEN HANDLER was issued Monday and that he needs to appear in court the day after discharge if he is going today. I told him he would be discharged today. Reminded Gabo of court tomorrow. Asked where he would be staying today? He said he was staying with a friend in [place]. He asked about his follow up from here. I told him that he can do a walk in [facility] in [place]. He wondered if we could do something closer to [place]. I told him about [facility]. He was familiar with [facility] and said he had their information in his back pack. He asked if I could refer him to [facility]. I told him I can start that process for him, but most likely wouldn't get an appt. by the time he needed to leave today. He signed a release and I faxed over a clinical packet. I told him he will need to call and follow up with them. He wanted his Aunt Eleazar to pick him up, but we were not successful in reaching her directly. He called his cousin Yolanda, who also was trying to reach his Aunt for him. I told him that we could give him bus [place]. He is looking to go to the police station to get his belongings and then head to [place]. He asked if we could help him with train fare? I told him we would look into it.
--- NOTE | 2016-12-20 07:43 | DISCHARGE SUMMARY REPORT-PSYCH ---
Visit Information Visit Dates/Diagnosis' Admission Date: 12/12/16 Discharge Date: 12/19/16 Reason for Admission: Patient presented to [facility] Emergency Department on 12/09/16 in [place] police custody for suicidal ideation and command auditory hallucinations in the setting of cocaine intoxication and recent arrest. Psy Discharge Primary Diag: Bipolar disorder, MRE depressed with psychotic features. Psy Discharge Secondary Diag: Cocaine use disorder; R/O PTSD; R/O Antisocial traits. Hospital Course Significant Lab Findings: Lab HDL Cholesterol 38 mg/dL L 12/09/16 1802 LDL Cholesterol, Calc 58 mg/dL L 12/09/16 1802 Urine Cocaine Screen > 1000 NG/ML H 12/09/16 1819 Valproic Acid 30.4 ug/mL L 12/15/16 0654 Valproic Acid 30.4 ug/mL L 12/16/16 0706 Valproic Acid 39.2 ug/mL L 12/19/16 0820 Course Complications: None. Consultations: The patient was seen for admission history and physical by mink farmer Dr. Vinny Maravilla. Please see his note for additional information. Allergies: Coded Allergies: No Known Allergies (12/11/16) Hospital Course/TX Response: The patient was monitored on the unit for safety, mood, psychosis and suicidal ideation. He refused to participate in multimodal treatments on the unit. Depakote ER 750mg daily was started for mood stabilization and increased to 1, 500mg daily. Valproic acid level was subtherapeutic, 39.2ug/mL at 1500mg daily. The patient refused to increase the dose further on discharge despite this casualty underwriter's recommendation. Seroquel 300mg QHS was increased to 400mg QHS for auditory hallucinations/mood stabilization. Patient tolerated medications well and denied side effects. During the hospital course, the patient's mood and affect stabilized. There was suspicion that the patient received a secondary gain from being in the hospital (i.e., evading legal consequences) as he did not partake in any milieu treatment , slept the majority of each day and came out of his room for meals only. His persistently demanding, inappropriate and tantrum-like behaviors appeared predominantly volitional, as they seemed goal directed to get his own way and manipulate staff. Bisi Shearer LCSW, attempted several times to connect with the patient's aunt, however, she made it clear to SAUSAGE LINKER that she did not want to be involved in his treatment. The patient did not give permission for the treatment team to speak to past providers, or other family/friends. During hospitalization , the patient signed a promise to appear (BEAN PICKER MACHINE OPERATOR) with [facility] granting him the ability to present directly to court post-discharge rather than discharging into police custody. The patient was agreeable to follow-up with [facility] in [place], [place], and later requested a referral be placed at [facility]. Patient was informed that the latter referral was made, he was given the contact information to follow-up with [facility]. He verbalized understanding and was in favor of discharge plan. Patient was additionally informed to present to [address] on 12/20/16 by 9AM for appearance. He verbalized understanding. Patient seen at 10:16AM, on 12/19/16, the date of discharge. He presented calm, cooperative, initiating conversation with this casualty underwriter. Reported mood is "good." Affect constricted, non-labile. Speech normal in rate, tone and volume. Eye contact appropriate. He offered no complaints. Stated nightmares resolved. Reported improved sleep, stable appetite and energy level. Denied acute symptoms of anxiety and depression. Denied feeling hopeless, helpless, worthless and guilty. Denied passive and active suicidal ideation, plans and intent. Stated and also believed he will not harm himself or others. Denied homicidal ideation. Denied auditory and visual hallucinations. No evidence of paranoia, or mariposa delusions. Denied racing thoughts. Expressed feeling better about receiving a BEAN PICKER MACHINE OPERATOR and plans to stay with a friend in [place] after picking up his belongings at [facility] station. Reported tolerating medications well, denied SEs. Recommended increasing Depakote ER to 2,000mg daily on discharge, however the patient refused. Stated feeling good on current regimen. Agreeable to continue taking current regimen. Reported feeling safe and ready for discharge. Discharge HBIPS - Tobacco Use Treatment Offered Post DC Medications Offered: Refused Tob Medication Tx Post DC Tobacco Treatment Plan: Refused Tobacco Tx Pgm - EtOH/Drug Use D/O Treatment Offered Post DC Medications Offered: Med Not Indicated for D/O Post DC EtOH/SubAbuse TX Plan: Other SubAbuse/Dual Pgm Metabolic Screening - Screen if on a Neuroleptic Medication - Metabolic screening should include: - Blood Pressure, BMI, Glucose or Hgb A1c, & a - Lipid profile from within the past 365 days. Metabolic Screening () Not Applicable, patient not on a neuroleptic. OR ([X]) Patient on a neuroleptic(s) . Enter below results for Glucose or Hemoglobin A1C, and lipid panel if obtained during the last 365 days. BMI: 34.900 Blood Pressure: 152/98 Laboratory Results (If applicable): Lab Cholesterol 120 MG/DL 12/09/16 1802 Cholesterol/HDL Ratio 3 % 12/09/16 1802 Glucose 96 mg/dL 12/09/16 1802 HDL Cholesterol 38 mg/dL L 12/09/16 1802 LDL Cholesterol, Calc 58 mg/dL L 12/09/16 1802 Triglycerides 122 mg/dL 12/09/16 1802 Discharge Instructions General Discharge Information Discharge Medications: Discharge Medications- (Dose, route, freq, indication): START taking these NEW Home Medications: Prazosin HCl Dose: ORAL, AT BEDTIME for Qty: 14 Sent to (Prazosin HCl) 2 MG 2 Milligram nightmares Refills: 0 Pharm 1 CAPSULE Take 1 cap po QHS. Divalproex Sodium Dose: ORAL, DAILY for mood Qty: 42 Sent to (Divalproex Sodium 1,500 stabilization Refills: 0 Pharm 1 ER) 500 MG Milligram Take 3 tabs (1,500mg) po TAB.ER.24H daily. Quetiapine Fumarate Dose: ORAL, Every night for Qty: 28 Sent to (Quetiapine 2 Tablet clear thoughts Refills: 0 Pharm 1 Fumarate) 200 MG Take 2 tabs (400mg) QHS. TABLET 1: [facility] [address] [address] [place], [place] [address] Your Preferred Pharmacy [facility] [address] [place], [place] [id number] Multiple Neuroleptics: ([X]) Not Applicable OR Document below three failed attempts at monotherapy, or a plan to taper to monotherapy, or augmentation of Clozapine. () Patient's Diet: Regular. Patient's Activity: No restrictions. DC Disposition: Patient to live at friend's house in [place], [place]. Recommendations: The patient was advised to please take his medications as prescribed. He was advised to abstain from all substances, attend AA/NA meetings and obtain a sponsor for support in sobriety. He was advised to appear at [address] on 12/20 by 9AM. He was advised that if he is released by court, to follow-up at [facility] and call [facility] for an update on the referral sent. He was advised that in the event of an emergency to call 911/211/go to the nearest emergency department. He was also advised to call 211 in the event he is in need of housing assistance. Patient verbalized understanding of all instructions. Referred To: Post Discharge Referrals Provider Referral Service Date: 12/22/16 Referred To: [[facility]] Notes: [facility] Walk In evaluations days Monday 12:30-3:30 or 1:30-4:30pm [address] [place] [address] Provider Referral Referred To: [211] Notes: Call 211 for assistance with housing/ shelters Provider Referral Referred To: [[facility]] Notes: [facility] [phone] Call to follow up on referral Copies To: [facility]
== END 2016-12-19 12:20 | DRG 753 ==
LOC: ERH 17:23 → EDBEDREQ 12-12 13:39 → CP SOUTH 12-12 13:43 → ERHI 12-12 13:43 → ENTRNSPT 12-12 19:52 → CMPTRNSPT 12-12 20:15 → CP SOUTH 12-12 20:15 → ENRESERV 12-12 23:59 → CP SOUTH 12-13 16:34
PROVIDERS: Physician Assistant Medical; ADMIT Psychiatry & Neurology Psychiatry
DX: F31.5 Bipolar disorder, current episode depressed, severe, with psychotic features (principal); F14.90 Cocaine use, unspecified, uncomplicated; F43.10 Post-traumatic stress disorder, unspecified; F60.2 Antisocial personality disorder
CPT/HCPCS: 36415; 80307; G0463; G0480; J1200; J1630; J3230